=== PATIENT | female | born 1940 | race Caucasian/White ===

== ENCOUNTER 2018-12-08 13:55 | Emergency (ER) | payer MEDICARE, OTHER ==
[~2018-12-08] VITALS: Ht 165.1 cm; Wt 90.7 kg
[2018-12-08 16:00] VITALS: BP 176/80
== END 2018-12-08 16:35 | disposition home or self-care (01) ==
LOC: ER 13:55
DX: H20.9 Unspecified iridocyclitis (principal)
CPT/HCPCS: 76536

== ENCOUNTER → 2020-04-06 | Outpatient (CLI) | payer MEDICARE, OTHER ==
[2020-04-06 08:53] LABS: Basophils # (auto) 0 10 ^3/uL (0-0.2); Basophils % (auto) 0.3 % (0.0-2.0); Eosinophils # (auto) 0 10 ^3/uL (0-0.8); Eosinophils % (auto) 0.4 % (0.0-7.0); Hematocrit 45.1 % (36.0-46.0); Hemoglobin 15.2 g/dL (12.2-16.2); Lymphocytes # (auto) 2.1 10 ^3/uL (0.4-5.4); Lymphocytes % (auto) 28.8 % (10.0-50.0); Mean Corpuscular Hemoglobin 30.4 pg (28.0-32.0); Mean Corpuscular Hgb Conc. 33.8 g/dL (32.0-36.0); Mean Corpuscular Volume 90.2 fL (80.0-100.0); Monocytes # (auto) 0.7 10 ^3/uL (0-1.3); Monocytes % (auto) 10.4 % (0.0-12.0); Neutrophils # (auto) 4.3 10 ^3/uL (1.6-8.6); Neutrophils % (auto) 60.1 % (37.0-80.0); Nucleated Red Blood Cells % 0.2 %; Platelet Count (auto) 195 10^3/uL (140-450); Red Cell Distribution Width 13.4 % (11.8-14.3); White Blood Cell 7.1 10^3/uL (4.4-10.8)
[2020-04-06 09:11] LABS: Urine Bacteria NONE SEEN /hpf (None Seen); Urine Blood Negative /uL (Negative); Urine Hyaline Cast FEW /lpf (0 - 2); Urine Mucus FEW (None Seen); Urine Specific Gravity 1.013 (1.001-1.035); Urine WBC 1 /hpf (0 - 5)
[2020-04-06 09:16] LABS: Albumin 3.8 g/dL (3.4-5.0); Potassium 3.6 mmol/L (3.5-5.1)
[2020-04-06 09:27] LABS: BUN/Creatinine Ratio 16.2; Bilirubin, Total 0.6 mg/dL (0.2-1.0); CRP High Sensitivity 1.91 mg/dL (< 0.3); Calcium 9.4 mg/dL (8.5-10.1); Total Protein 8.1 g/dL (6.4-8.2)
== END | disposition home or self-care (01) ==
LOC: LAB 08:38
PROVIDERS: ATTEND Obstetrics & Gynecology
DX: I10 Essential (primary) hypertension (principal); R53.83 Other fatigue; E11.9 Type 2 diabetes mellitus without complications; R79.9 Abnormal finding of blood chemistry, unspecified
CPT/HCPCS: 36415; 80053; 80061; 81001; 83036; 84443; 85025; 86141; 87086

== ENCOUNTER 2021-02-13 11:33 | Emergency (ER) | payer OTHER ==
[~2021-02-13] VITALS: Ht 165.1 cm; Wt 93.6 kg
[2021-02-13] MEDS ORDERED: SODIUM CHLORIDE 0.9% 1,000 ML IV ONE (11:45)
[2021-02-13] MEDS ORDERED: methylPREDNISolone SOD SUCC 125 MG/2 ML VL IV ONE (11:45)
[2021-02-13 12:14] LABS: Basophils # (auto) 0 10 ^3/uL (0-0.2); Basophils % (auto) 0.4 % (0.0-2.0); Eosinophils # (auto) 0.1 10 ^3/uL (0-0.8); Eosinophils % (auto) 0.9 % (0.0-7.0); Hematocrit 43.8 % (36.0-46.0); Hemoglobin 14.7 g/dL (12.2-16.2); Lymphocytes # (auto) 1.7 10 ^3/uL (0.4-5.4); Lymphocytes % (auto) 19.2 % (10.0-50.0); Mean Corpuscular Hemoglobin 29.7 pg (28.0-32.0); Mean Corpuscular Hgb Conc. 33.4 g/dL (32.0-36.0); Mean Corpuscular Volume 88.9 fL (80.0-100.0); Monocytes # (auto) 0.6 10 ^3/uL (0-1.3); Monocytes % (auto) 6.7 % (0.0-12.0); Neutrophils # (auto) 6.4 10 ^3/uL (1.6-8.6); Neutrophils % (auto) 72.8 % (37.0-80.0); Red Blood Cells 4.93 10^6/uL (4.0-5.20); White Blood Cell 8.7 10^3/uL (4.4-10.8)
[2021-02-13 12:30] LABS: INR 1.03 (0.9-1.15); Partial Thromboplastin Time 25.3 sec (23.6-33.0)
[2021-02-13 12:32] LABS: Albumin 3.7 g/dL (3.4-5.0); Calcium 9.1 mg/dL (8.5-10.1); Potassium 4.1 mmol/L (3.5-5.1)
[2021-02-13 12:35] LABS: BUN/Creatinine Ratio 18.1; Bilirubin, Total 0.7 mg/dL (0.2-1.0); Total Protein 7.4 g/dL (6.4-8.2)
[2021-02-13] MEDS ORDERED: IOHEXOL 350 MG/ML 100ML IJ ONE (12:58)
[2021-02-13] MEDS ORDERED: FUROSEMIDE 20 MG/2 ML VIAL IV ONE (14:30)
[2021-02-13 14:43] VITALS: BP 158/66
== END 2021-02-13 15:06 | disposition home or self-care (01) ==
LOC: ER 11:33
DX: J40 Bronchitis, not specified as acute or chronic (principal); R60.0 Localized edema; Z20.822 Contact with and (suspected) exposure to COVID-19
CPT/HCPCS: 36415; 71275; 80053; 84484; 85025; 85610; 85730; 87426; 93005; 96374; 96375; 99285; J1940; J2930; Q9967

== ENCOUNTER → 2021-06-01 | Outpatient (CLI) | payer OTHER ==
[~2021-06-01] VITALS: Ht 165.1 cm; Wt 90.7 kg
[~2021-06-01] MED LIST: ADENOSINE 76 MG in GIVE UN-DILUTED 0 ML IV STA
== END | disposition home or self-care (01) ==
LOC: XY 07:50
PROVIDERS: ATTEND Internal Medicine
DX: I11.0 Hypertensive heart disease with heart failure (principal); I50.22 Chronic systolic (congestive) heart failure; I42.8 Other cardiomyopathies; R63.8 Other symptoms and signs concerning food and fluid intake; Z68.32 Body mass index [BMI] 32.0-32.9, adult; R94.31 Abnormal electrocardiogram [ECG] [EKG]; Z87.891 Personal history of nicotine dependence
CPT/HCPCS: 78452; 93017; A9500; J0153

== ENCOUNTER → 2021-12-07 | Outpatient (CLI) | payer OTHER | END | disposition home or self-care (01) | LOC: XYW 13:29 | PROVIDERS: ATTEND Internal Medicine | DX: R00.2 Palpitations (principal) | CPT/HCPCS: 93306 ==

== ENCOUNTER 2022-02-21 07:18 | Inpatient (IN) | payer OTHER ==
[2022-02-19 12:48] LABS: Basophils # (auto) 0 10 ^3/uL (0-0.2); Basophils % (auto) 0.4 % (0.0-2.0); Eosinophils # (auto) 0.1 10 ^3/uL (0-0.8); Eosinophils % (auto) 1.1 % (0.0-7.0); Hematocrit 45.2 % (36.0-46.0); Hemoglobin 15.3 g/dL (12.2-16.2); Lymphocytes # (auto) 2.5 10 ^3/uL (0.4-5.4); Lymphocytes % (auto) 33.7 % (10.0-50.0); Mean Corpuscular Hemoglobin 31.2 pg (28.0-32.0); Mean Corpuscular Hgb Conc. 33.8 g/dL (32.0-36.0); Mean Corpuscular Volume 92.1 fL (80.0-100.0); Monocytes # (auto) 0.6 10 ^3/uL (0-1.3); Neutrophils # (auto) 4.3 10 ^3/uL (1.6-8.6); Neutrophils % (auto) 56.8 % (37.0-80.0); Nucleated Red Blood Cells % 0.1 %; Red Blood Cells 4.91 10^6/uL (4.0-5.20); Red Cell Distribution Width 13.2 % (11.8-14.3); White Blood Cell 7.5 10^3/uL (4.4-10.8)
[2022-02-19 13:09] LABS: Partial Thromboplastin Time 25.3 sec (24.6-33.4)
[2022-02-19 14:00] LABS: Albumin 3.8 g/dL (3.4-5.0); BUN/Creatinine Ratio 13.3; Calcium 9.7 mg/dL (8.5-10.1); Potassium 4.5 mmol/L (3.5-5.1); Total Protein 7.7 g/dL (6.4-8.2)
[~2022-02-21] VITALS: Ht 170.2 cm; Wt 97.7 kg
[2022-02-21] VITALS (10 sets, daily range): BP systolic 93–145; BP diastolic 47–77
[~2022-02-21 07:18] MED LIST changes: -ADENOSINE 76 MG in GIVE UN-DILUTED 0 ML IV STA; +ASPI81CH49 PO; +ATO40T PO; +CARV6.2551 PO; +DAPA1TAB4 PO; +EZET10TA22 PO; +LISI-716 PO; +SPIR25TA8 PO
[2022-02-21] MEDS ORDERED: LIDOCAINE 2%HCL (LOCAL ANESTH.) INJ 20ML MDV ONE (11:50)
[2022-02-21] MEDS ORDERED: IODIXANOL 320MG/ML 100ML BTL IV ONE ×2 (11:50→12:38)
[2022-02-21] MEDS ORDERED: HEPARIN SODIUM (PORCINE) 5000 UNITS/ML 1ML VIAL ONE (11:59)
[2022-02-21] MEDS ORDERED: ANGIOMAX 250 MG VIAL IV ONE (11:59)
[2022-02-21] MEDS ORDERED: VERAPAMIL 2.5MG/ML INJ 2ML VIAL IV ONE (11:59)
[2022-02-21] MEDS ORDERED: fentaNYL CITRATE 100 MCG/2 ML VL ONE (12:00)
[2022-02-21] MEDS ORDERED: SODIUM CHL 0.9% 50 ML ONE (12:00)
[2022-02-21] MEDS ORDERED: MIDAZOLAM HCL 2MG/2ML 2ml VIAL (1mg/ml) ONE (12:00)
[2022-02-21] MEDS ORDERED: CLOPIDOGREL 300 MG TAB ONE (13:06)
[2022-02-21] MEDS ORDERED: NITROGLYCERIN 0.4 MG SL TAB SL PRN (13:30)
[2022-02-21] MEDS ORDERED: MORPHINE SULFATE INJ 2 MG/ml SYRG IV PRN (13:30)
[2022-02-21] MEDS ORDERED: ACETAMINOPHEN 500 MG TAB PO PRN (15:00)
[2022-02-21] MEDS ORDERED: ONDANSETRON HCL 4 MG/2 ML VIAL IV PRN (15:00)
[2022-02-21] MEDS ORDERED: traMADol HCL 50 MG TAB PO PRN (15:00)
[2022-02-21] MEDS: SODIUM CHLOR 0.9% PF (SALINE LOCK) 10ML VIAL/SYR IV SCH (22:00)
[2022-02-21] MEDS ORDERED: ATORVASTATIN 20 MG TAB PO SCH (22:00)
[2022-02-21] MEDS: CARVEDILOL 3.125 MG TAB PO SCH (22:29)
[2022-02-22 05:00] VITALS: BP 126/57
[2022-02-22] MEDS: SODIUM CHLOR 0.9% PF (SALINE LOCK) 10ML VIAL/SYR IV SCH ×2 (06:05→12:45)
[2022-02-22 06:43] LABS: Basophils # (auto) 0 10 ^3/uL (0-0.2); Basophils % (auto) 0.4 % (0.0-2.0); Eosinophils # (auto) 0.1 10 ^3/uL (0-0.8); Eosinophils % (auto) 1.4 % (0.0-7.0); Hematocrit 40.9 % (36.0-46.0); Lymphocytes # (auto) 2.8 10 ^3/uL (0.4-5.4); Lymphocytes % (auto) 32.7 % (10.0-50.0); Mean Corpuscular Hemoglobin 31.6 pg (28.0-32.0); Mean Corpuscular Hgb Conc. 34.2 g/dL (32.0-36.0); Mean Corpuscular Volume 92.4 fL (80.0-100.0); Monocytes # (auto) 0.7 10 ^3/uL (0-1.3); Monocytes % (auto) 8.5 % (0.0-12.0); Neutrophils # (auto) 4.8 10 ^3/uL (1.6-8.6); Red Blood Cells 4.43 10^6/uL (4.0-5.20); Red Cell Distribution Width 13.4 % (11.8-14.3); White Blood Cell 8.5 10^3/uL (4.4-10.8)
[2022-02-22 07:07] LABS: BUN/Creatinine Ratio 22.7; Calcium 8.7 mg/dL (8.5-10.1); Potassium 4.3 mmol/L (3.5-5.1)
[2022-02-22 08:30] VITALS: BP 119/66
[2022-02-22] MEDS ORDERED: ASPirin 81 mg TAB PO SCH (10:00)
[2022-02-22] MEDS ORDERED: LISINOPRIL 10 MG TAB PO SCH (10:00)
[2022-02-22] MEDS ORDERED: CLOPIDOGREL BISULFATE 75 MG TAB PO SCH (10:00)
[2022-02-22] MEDS: CARVEDILOL 3.125 MG TAB PO SCH (10:17)
[2022-02-22] MEDS ORDERED: APIXABAN 2.5 MG TAB PO ONE (11:22)
[2022-02-22] MEDS ORDERED: ASPI-325 PO (11:27)
[2022-02-22] MEDS ORDERED: APIX5TAB PO (11:27)
[2022-02-22] MEDS ORDERED: CLOP75TA70 PO (11:27)
[2022-02-22 12:30] VITALS: BP 145/77
[2022-02-22 13:16] VITALS: BP 124/55
[2022-02-22] MEDS ORDERED: APIXABAN 5 MG TAB PO SCH (22:00)
[2022-02-23] MEDS ORDERED: EMPAGLIFLOZIN 10 MG TAB PO SCH (10:00)
== END 2022-02-22 14:42 | disposition home or self-care (01) | DRG 247 ==
LOC: CATH 07:18 → TELE 13:29 → TELE-WESTW 16:16
PROVIDERS: ADMIT Internal Medicine; ATTEND Internal Medicine
PROC: 027135Z Dilation of Coronary Artery, Two Arteries with Two Drug-eluting Intraluminal Devices, Percutaneous Approach (ICD-10-PCS; principal; 2022-02-21)
PROC: 4A023N7 Measurement of Cardiac Sampling and Pressure, Left Heart, Percutaneous Approach (ICD-10-PCS; 2022-02-21)
PROC: B211YZZ Fluoroscopy of Multiple Coronary Arteries using Other Contrast (ICD-10-PCS; 2022-02-21)
PROC: B215YZZ Fluoroscopy of Left Heart using Other Contrast (ICD-10-PCS; 2022-02-21)
DX: I25.10 Atherosclerotic heart disease of native coronary artery without angina pectoris (principal); I50.22 Chronic systolic (congestive) heart failure; I51.3 Intracardiac thrombosis, not elsewhere classified; E66.9 Obesity, unspecified; Z60.2 Problems related to living alone; Z20.822 Contact with and (suspected) exposure to COVID-19; E78.5 Hyperlipidemia, unspecified; I11.0 Hypertensive heart disease with heart failure; Z79.02 Long term (current) use of antithrombotics/antiplatelets; Z79.82 Long term (current) use of aspirin; Z95.5 Presence of coronary angioplasty implant and graft; Z68.33 Body mass index [BMI] 33.0-33.9, adult
CPT/HCPCS: 36415; 80048; 80053; 83036; 84443; 85025; 85610; 85730; 92928; 92929; 93458; 99152; 99153; C1874; G0378; J2250; Q9967

== ENCOUNTER → 2022-07-23 | Outpatient (CLI) | payer OTHER ==
[~2022-07-23] MED LIST changes: +APIX5TAB PO; +ASPI-325 PO; +CLOP75TA70 PO
== END | disposition home or self-care (01) ==
LOC: XYW 10:22
PROVIDERS: ATTEND Internal Medicine
DX: I07.1 Rheumatic tricuspid insufficiency (principal); I50.22 Chronic systolic (congestive) heart failure
CPT/HCPCS: 93306

== ENCOUNTER → 2022-10-26 | Outpatient (CLI) | payer OTHER ==
[~2022-10-26] MED LIST changes: -LISI-716 PO; +LISI10TA34 PO
== END | disposition home or self-care (01) ==
LOC: XYW 07:20
PROVIDERS: ATTEND Internal Medicine
DX: I49.9 Cardiac arrhythmia, unspecified (principal)
CPT/HCPCS: 78472; A9560

== ENCOUNTER → 2022-11-16 | Outpatient (CLI) | payer OTHER ==
[2022-11-16 08:40] LABS: Basophils # (auto) 0.1 10 ^3/uL (0-0.2); Basophils % (auto) 0.7 % (0.0-2.0); Eosinophils # (auto) 0.1 10 ^3/uL (0-0.8); Eosinophils % (auto) 1.8 % (0.0-7.0); Hematocrit 41.2 % (36.0-46.0); Hemoglobin 13.8 g/dL (12.2-16.2); Lymphocytes # (auto) 2.3 10 ^3/uL (0.4-5.4); Lymphocytes % (auto) 28.8 % (10.0-50.0); Mean Corpuscular Hemoglobin 31.4 pg (28.0-32.0); Mean Corpuscular Hgb Conc. 33.4 g/dL (32.0-36.0); Monocytes # (auto) 0.7 10 ^3/uL (0-1.3); Neutrophils # (auto) 4.9 10 ^3/uL (1.6-8.6); Neutrophils % (auto) 59.7 % (37.0-80.0); Red Blood Cells 4.39 10^6/uL (4.0-5.20); Red Cell Distribution Width 13.8 % (11.8-14.3); White Blood Cell 8.1 10^3/uL (4.4-10.8)
[2022-11-16 08:57] LABS: Albumin 3.7 g/dL (3.4-5.0); Calcium 8.6 mg/dL (8.5-10.1); Potassium 4.3 mmol/L (3.5-5.1)
[2022-11-16 09:02] LABS: BUN/Creatinine Ratio 26.1 (10.0-20.0); Bilirubin, Total 0.5 mg/dL (0.2-1.0)
[2022-11-16 09:08] LABS: Free T3 3.35 pg/mL (2.3-4.2); Free T4 (Free Thyroxine) 1.07 ng/dL (0.89-1.76)
== END | disposition home or self-care (01) ==
LOC: LAB 07:56
PROVIDERS: ATTEND Internal Medicine
DX: I11.0 Hypertensive heart disease with heart failure (principal); I50.22 Chronic systolic (congestive) heart failure; I25.10 Atherosclerotic heart disease of native coronary artery without angina pectoris; I48.91 Unspecified atrial fibrillation
CPT/HCPCS: 36415; 80053; 80061; 84439; 84443; 84481; 85025

== ENCOUNTER 2022-12-19 06:43 | Inpatient (IN) | payer OTHER ==
[2022-12-18 14:42] LABS: Basophils # (auto) 0.1 10 ^3/uL (0-0.2); Eosinophils # (auto) 0.1 10 ^3/uL (0-0.8); Eosinophils % (auto) 1.4 % (0.0-7.0); Hemoglobin 14.4 g/dL (12.2-16.2); Lymphocytes # (auto) 2.6 10 ^3/uL (0.4-5.4); Lymphocytes % (auto) 28.7 % (10.0-50.0); Mean Corpuscular Hemoglobin 30.7 pg (28.0-32.0); Mean Corpuscular Hgb Conc. 32.8 g/dL (32.0-36.0); Mean Corpuscular Volume 93.7 fL (80.0-100.0); Monocytes # (auto) 0.7 10 ^3/uL (0-1.3); Monocytes % (auto) 7.4 % (0.0-12.0); Neutrophils # (auto) 5.5 10 ^3/uL (1.6-8.6); Neutrophils % (auto) 61.5 % (37.0-80.0); Nucleated Red Blood Cells % 0.1 %; Red Cell Distribution Width 13.6 % (11.8-14.3)
[2022-12-18 15:03] LABS: INR 1.04 (0.9-1.15); Partial Thromboplastin Time 24.9 SEC (24.5-34.5); Prothrombin Time 10.9 sec (9.3-11.8)
[2022-12-18 15:37] LABS: Alanine Aminotransferase 33 U/L (7-40); Albumin 4.8 g/dL (3.2-4.8); Alkaline Phosphatase 71 U/L (46-116); Anion Gap 5.5 (5-15); Aspartate Aminotransferase 18 U/L (13-40); BUN/Creatinine Ratio 16.5 (10.0-20.0); Bilirubin, Total 0.7 mg/dL (0.2-1.0); Blood Urea Nitrogen 14 mg/dL (9-23); Calcium 9.8 mg/dL (8.7-10.4); Carbon Dioxide 28.5 mmol/L (20-30); Chloride 104 mmol/L (98-107); Glucose 130 mg/dL (74-106); Potassium 4.3 mmol/L (3.5-5.1); Sodium 138 mmol/L (136-145); Total Protein 7.5 g/dL (5.7-8.2)
[~2022-12-19] VITALS: Ht 165.1 cm; Wt 95.3 kg
[2022-12-19] VITALS (16 sets, daily range): BP systolic 119–147; BP diastolic 52–78; PULSE 58–82; RESP 15–20; TEMP 97.6–98.7; O2SAT 93–99
[~2022-12-19 06:43] MED LIST changes: -ASPI-325 PO; -ASPI81CH49 PO; -DAPA1TAB4 PO
[2022-12-19] MEDS ORDERED: LIDOCAINE 2%HCL (LOCAL ANESTH.) INJ 20ML MDV ONE ×2 (08:13→08:52)
[2022-12-19] MEDS ORDERED: IODIXANOL 320MG/ML 100ML BTL IV ONE (08:13)
[2022-12-19] MEDS ORDERED: HEPARIN SODIUM (PORCINE) 5000 UNITS/ML 1ML VIAL ONE (08:51)
[2022-12-19] MEDS ORDERED: ANGIOMAX 250 MG VIAL IV ONE (08:51)
[2022-12-19] MEDS ORDERED: fentaNYL CITRATE 100 MCG/2 ML VL ONE (08:51)
[2022-12-19] MEDS ORDERED: MIDAZOLAM HCL 2MG/2ML 2ml VIAL (1mg/ml) ONE (08:51)
[2022-12-19] MEDS ORDERED: VERAPAMIL 2.5MG/ML INJ 2ML VIAL IV ONE (08:51)
[2022-12-19] MEDS ORDERED: IOHEXOL 350 MG/ML 100ML IJ ONE (08:52)
[2022-12-19] MEDS ORDERED: SODIUM CHL 0.9% 50 ML ONE (08:52)
[2022-12-19] MEDS ORDERED: CLOPIDOGREL BISULFATE 75 MG TAB ONE (10:45)
[2022-12-19] MEDS ORDERED: MORPHINE SULFATE INJ 2 MG/ml SYRG IV PRN (12:00)
[2022-12-19] MEDS ORDERED: NITROGLYCERIN 0.4 MG SL TAB SL PRN (12:00)
[2022-12-19] MEDS ORDERED: APIX5TAB PO (12:00)
[2022-12-19] MEDS ORDERED: PNEUMOCOCCAL VACC POLYS 25 MCG/0.5 ML VIAL IM ONE (18:30)
[2022-12-20 05:00] VITALS: BP 102/56; PULSE 64; RESP 17; TEMP 98.3; O2SAT 95
[2022-12-20 08:00] VITALS: BP 109/47; PULSE 66; PULSE 72; RESP 20; TEMP 98.8; O2SAT 98
[2022-12-20] MEDS ORDERED: PNEUMOCOCCAL VACC POLYS 25 MCG/0.5 ML VIAL IM ONE (09:00)
[2022-12-20] MEDS ORDERED: INFLUENZA QUAD 2022-2023 0.5 ML SYRG IM ONE (09:00)
[2022-12-20 12:00] VITALS: BP 116/54; PULSE 67; TEMP 97.7; O2SAT 20
[2022-12-20 14:08] VITALS: BP 116/54; PULSE 67; RESP 20; TEMP 97.7; O2SAT 96
== END 2022-12-20 15:18 | disposition home or self-care (01) | DRG 249 ==
LOC: CATH 06:43 → TELE 11:56 → TELE-WESTW 15:26
PROVIDERS: ADMIT Internal Medicine; ATTEND Internal Medicine
PROC: 4A023N7 Measurement of Cardiac Sampling and Pressure, Left Heart, Percutaneous Approach (ICD-10-PCS; principal; 2022-12-19)
PROC: 02703EZ Dilation of Coronary Artery, One Artery with Two Intraluminal Devices, Percutaneous Approach (ICD-10-PCS; 2022-12-19)
PROC: B2111ZZ Fluoroscopy of Multiple Coronary Arteries using Low Osmolar Contrast (ICD-10-PCS; 2022-12-19)
PROC: B2151ZZ Fluoroscopy of Left Heart using Low Osmolar Contrast (ICD-10-PCS; 2022-12-19)
DX: I25.10 Atherosclerotic heart disease of native coronary artery without angina pectoris (principal); I50.22 Chronic systolic (congestive) heart failure; E78.5 Hyperlipidemia, unspecified; I11.0 Hypertensive heart disease with heart failure; E66.9 Obesity, unspecified; Z68.35 Body mass index [BMI] 35.0-35.9, adult; I25.82 Chronic total occlusion of coronary artery
CPT/HCPCS: 36415; 80053; 85025; 85610; 85730; 90686; 92928; 93458; 99152; 99153; C1769; C1874; G0378; J2250; Q9967

== ENCOUNTER → 2023-08-16 | Outpatient (CLI) | payer OTHER ==
[~2023-08-16] MED LIST changes: -ATO40T PO; +ATOR-507 PO; -CLOP75TA70 PO
[2023-08-16 08:12] LABS: Basophils # (auto) 0.1 10 ^3/uL (0-0.2); Basophils % (auto) 0.7 % (0.0-2.0); Eosinophils # (auto) 0.1 10 ^3/uL (0-0.8); Eosinophils % (auto) 1.1 % (0.0-7.0); Hematocrit 41.7 % (36.0-46.0); Hemoglobin 13.5 g/dL (12.2-16.2); Lymphocytes # (auto) 2.8 10 ^3/uL (0.4-5.4); Lymphocytes % (auto) 34.5 % (10.0-50.0); Mean Corpuscular Hgb Conc. 32.3 g/dL (32.0-36.0); Mean Corpuscular Volume 92.8 fL (80.0-100.0); Monocytes # (auto) 0.8 10 ^3/uL (0-1.3); Monocytes % (auto) 9.4 % (0.0-12.0); Neutrophils # (auto) 4.4 10 ^3/uL (1.6-8.6); Neutrophils % (auto) 54.3 % (37.0-80.0); Nucleated Red Blood Cells % 0.1 %; Red Blood Cells 4.49 10^6/uL (4.0-5.20); Red Cell Distribution Width 13.8 % (11.8-14.3); White Blood Cell 8.1 10^3/uL (4.4-10.8)
[2023-08-16 08:41] LABS: Alanine Aminotransferase 14 U/L (7-40); Albumin 4.5 g/dL (3.2-4.8); Alkaline Phosphatase 76 U/L (46-116); Anion Gap 6 (5-15); Aspartate Aminotransferase 18 U/L (13-40); BUN/Creatinine Ratio 14.1 (10.0-20.0); Blood Urea Nitrogen 13 mg/dL (9-23); Carbon Dioxide 29 mmol/L (20-30); Chloride 105 mmol/L (98-107); Cholesterol 124 mg/dL (< 200); Glucose 132 mg/dL (74-106); HDL Cholesterol 55 mg/dL (40-59); LDL Cholesterol 44 mg/dL (< 100); Potassium 4.3 mmol/L (3.5-5.1); Sodium 140 mmol/L (136-145); Triglycerides 90 mg/dL (< 150)
[2023-08-16 08:42] LABS: Bilirubin, Total 0.7 mg/dL (0.2-1.0)
[2023-08-16 08:58] LABS: Free T3 3.98 pg/mL (2.3-4.2); Free T4 (Free Thyroxine) 1.12 ng/dL (0.89-1.76)
== END | disposition home or self-care (01) ==
LOC: LAB 07:32
PROVIDERS: ATTEND Internal Medicine
DX: I25.10 Atherosclerotic heart disease of native coronary artery without angina pectoris (principal); I10 Essential (primary) hypertension; I42.0 Dilated cardiomyopathy
CPT/HCPCS: 36415; 80053; 80061; 84439; 84443; 84481; 85025

== ENCOUNTER → 2023-08-21 | Outpatient (CLI) | payer OTHER ==
[~2023-08-21] VITALS: Ht 165.1 cm; Wt 94.8 kg
[2023-08-21] MEDS: ADENOSINE 80 MG in GIVE UN-DILUTED 0 ML IV ONE (09:56)
== END | disposition home or self-care (01) ==
LOC: XYW 08-20 11:08
PROVIDERS: ATTEND Internal Medicine
DX: I13.0 Hypertensive heart and chronic kidney disease with heart failure and stage 1 through stage 4 chronic kidney disease, or unspecified chronic kidney disease (principal); I50.22 Chronic systolic (congestive) heart failure; N18.2 Chronic kidney disease, stage 2 (mild); R06.02 Shortness of breath; I25.118 Atherosclerotic heart disease of native coronary artery with other forms of angina pectoris; I42.0 Dilated cardiomyopathy; R07.9 Chest pain, unspecified; I70.0 Atherosclerosis of aorta; I77.810 Thoracic aortic ectasia; I48.91 Unspecified atrial fibrillation; I47.10 Supraventricular tachycardia, unspecified; D68.69 Other thrombophilia
CPT/HCPCS: 78452; 93017; A9500; J0153

== ENCOUNTER → 2023-08-27 | Outpatient (CLI) | payer OTHER | END | disposition home or self-care (01) | LOC: XYW 08:32 | PROVIDERS: ATTEND Student in an Organized Health Care Education/Training Program | DX: I25.3 Aneurysm of heart (principal); I51.89 Other ill-defined heart diseases; R07.9 Chest pain, unspecified | CPT/HCPCS: 93306 ==

== ENCOUNTER 2023-09-11 09:45 | Inpatient (IN) | payer OTHER ==
[~2023-09-11] VITALS: Ht 165.1 cm; Wt 101.5 kg
[2023-09-11] MEDS: HYDROcodone-ACET 10/325MG TAB PO ONE (10:19)
[2023-09-11 10:47] LABS: Basophils # (auto) 0.1 10 ^3/uL (0-0.2); Basophils % (auto) 0.6 % (0.0-2.0); Eosinophils # (auto) 0.1 10 ^3/uL (0-0.8); Eosinophils % (auto) 1.4 % (0.0-7.0); Hematocrit 41.2 % (36.0-46.0); Hemoglobin 13.6 g/dL (12.2-16.2); Lymphocytes # (auto) 1.8 10 ^3/uL (0.4-5.4); Lymphocytes % (auto) 22.9 % (10.0-50.0); Mean Corpuscular Hemoglobin 30.9 pg (28.0-32.0); Mean Corpuscular Hgb Conc. 32.9 g/dL (32.0-36.0); Mean Corpuscular Volume 93.7 fL (80.0-100.0); Monocytes # (auto) 0.6 10 ^3/uL (0-1.3); Neutrophils # (auto) 5.4 10 ^3/uL (1.6-8.6); Neutrophils % (auto) 67.1 % (37.0-80.0); Red Blood Cells 4.39 10^6/uL (4.0-5.20); Red Cell Distribution Width 13.6 % (11.8-14.3); White Blood Cell 8.1 10^3/uL (4.4-10.8)
[2023-09-11 11:02] LABS: Alanine Aminotransferase 18 U/L (7-40); Albumin 3.8 g/dL (3.2-4.8); Alkaline Phosphatase 77 U/L (46-116); Anion Gap 5 (5-15); Aspartate Aminotransferase 16 U/L (13-40); BUN/Creatinine Ratio 9.8 (10.0-20.0); Bilirubin, Total 0.6 mg/dL (0.2-1.0); Blood Urea Nitrogen 9 mg/dL (9-23); Calcium 9.6 mg/dL (8.5-10.1); Carbon Dioxide 26 mmol/L (20-30); Chloride 109 mmol/L (98-107); Glucose 120 mg/dL (74-106); Potassium 4.4 mmol/L (3.5-5.1); Sodium 140 mmol/L (136-145); Total Protein 6.8 g/dL (5.7-8.2)
[2023-09-11] MEDS ORDERED: DOCUSATE SOD 100 MG CAP PO PRN (14:15)
[2023-09-11] MEDS ORDERED: ONDANSETRON HCL 4 MG/2 ML VIAL IV PRN (14:15)
[2023-09-11] MEDS ORDERED: NITROGLYCERIN 0.4 MG SL TAB SL PRN (14:15)
[2023-09-11] MEDS ORDERED: ACETAMINOPHEN 325 MG TAB PO PRN (14:15)
[2023-09-11] MEDS ORDERED: ASPI-325 PO (14:45)
[2023-09-11] MEDS ORDERED: CLOP75TA70 PO (14:45)
[2023-09-11] MEDS: MORPHINE SULFATE INJ 2 MG/ml SYRG IV PRN (15:51)
[2023-09-11] MEDS: CARVEDILOL 3.125 MG TAB PO SCH (18:00)
[2023-09-11] MEDS ORDERED: PATIENTS OWN MEDICATION (Atorvastatin Calcium (Lipitor) 1 TAB) PO SCH (18:00)
[2023-09-11] MEDS ORDERED: PATIENTS OWN MEDICATION (Carvedilol 1 TAB) PO SCH (18:00)
[2023-09-11 19:30] VITALS: PULSE 68; RESP 14; O2SAT 96
[2023-09-11 21:30] VITALS: BP 157/57; PULSE 66; RESP 16; TEMP 97.7; O2SAT 94
[2023-09-11] MEDS: ATORVASTATIN 20 MG TAB PO SCH (22:15)
[2023-09-11] MEDS: APIXABAN 5 MG TAB PO SCH (22:16)
[2023-09-11] MEDS: SODIUM CHLOR 0.9% PF (SALINE LOCK) 10ML VIAL/SYR IV SCH (22:17)
[2023-09-11 23:47] VITALS: BP 157/57; PULSE 66; RESP 16; TEMP 97.7; O2SAT 94
[2023-09-11] MEDS: HYDROcodone-ACET 5/325MG TAB PO PRN (23:58)
[2023-09-12 00:46] VITALS: BP 157/83; PULSE 73; RESP 19; TEMP 98.4; O2SAT 96
[2023-09-12] MEDS: MORPHINE SULFATE INJ 2 MG/ml SYRG IV PRN (01:18)
[2023-09-12 05:00] VITALS: BP 154/72; PULSE 74; RESP 19; TEMP 97.9; O2SAT 95
[2023-09-12 06:50] LABS: Basophils # (auto) 0.1 10 ^3/uL (0-0.2); Basophils % (auto) 0.7 % (0.0-2.0); Eosinophils # (auto) 0.1 10 ^3/uL (0-0.8); Eosinophils % (auto) 1.5 % (0.0-7.0); Hematocrit 41.7 % (36.0-46.0); Hemoglobin 13.8 g/dL (12.2-16.2); Lymphocytes # (auto) 2.8 10 ^3/uL (0.4-5.4); Mean Corpuscular Hemoglobin 30.8 pg (28.0-32.0); Mean Corpuscular Hgb Conc. 33.2 g/dL (32.0-36.0); Mean Corpuscular Volume 92.8 fL (80.0-100.0); Monocytes # (auto) 0.7 10 ^3/uL (0-1.3); Monocytes % (auto) 8.8 % (0.0-12.0); Neutrophils # (auto) 4.1 10 ^3/uL (1.6-8.6); Nucleated Red Blood Cells % 0.1 %; Red Blood Cells 4.49 10^6/uL (4.0-5.20); Red Cell Distribution Width 13.5 % (11.8-14.3); White Blood Cell 7.8 10^3/uL (4.4-10.8)
[2023-09-12 07:16] LABS: Alanine Aminotransferase 18 U/L (7-40); Albumin 4.5 g/dL (3.2-4.8); Alkaline Phosphatase 78 U/L (46-116); Anion Gap 5 (5-15); BUN/Creatinine Ratio 12.6 (10.0-20.0); Blood Urea Nitrogen 11 mg/dL (9-23); Calcium 9.9 mg/dL (8.5-10.1); Carbon Dioxide 27 mmol/L (20-30); Chloride 106 mmol/L (98-107); Glucose 107 mg/dL (74-106); Potassium 4.2 mmol/L (3.5-5.1); Sodium 138 mmol/L (136-145)
[2023-09-12 07:17] LABS: Aspartate Aminotransferase 20 U/L (13-40); Bilirubin, Total 0.8 mg/dL (0.2-1.0)
[2023-09-12 07:50] LABS: Magnesium 1.8 mg/dL (1.6-2.6)
[2023-09-12 07:51] LABS: CRP High Sensitivity 0.05 mg/dL (<1.0)
[2023-09-12 08:00] VITALS: PULSE 75; O2SAT 92
[2023-09-12 08:38] LABS: Erythrocyte Sedimentation Rate 8 mm/hr (0-20)
[2023-09-12] MEDS ORDERED: ACET-1882 PO (08:52)
[2023-09-12] MEDS ORDERED: LIDO5DIS21 TOP (08:52)
[2023-09-12] MEDS ORDERED: [UNRECOGNIZED DRUG - CODE] TD (08:52)
[2023-09-12 09:00] VITALS: BP 142/82; PULSE 63; RESP 18; TEMP 97.4; O2SAT 92
[2023-09-12 09:11] LABS: Hepatitis B Surface Antigen Negative (Negative)
[2023-09-12] MEDS: SPIRONOLACTONE 25 MG TAB PO SCH (09:26)
[2023-09-12] MEDS: LISINOPRIL 5 MG TAB PO SCH (09:27)
[2023-09-12] MEDS: CLOPIDOGREL BISULFATE 75 MG TAB PO SCH (09:27)
[2023-09-12] MEDS: ASPirin-EC 81 mg tab PO SCH (09:27)
[2023-09-12 09:33] LABS: Hepatitis C Antibody Negative (Negative)
[2023-09-12] MEDS ORDERED: PATIENTS OWN MEDICATION (Lisinopril 1 TAB) PO SCH (10:00)
[2023-09-12] MEDS ORDERED: LORazepam 2MG/ML-1ML VIAL IV ONE (10:15)
[2023-09-12 13:00] VITALS: BP 120/46; PULSE 77; RESP 18; TEMP 97.6; O2SAT 94
[2023-09-12 14:01] VITALS: BP 120/46; PULSE 77; RESP 18; TEMP 97.6; O2SAT 94
== END 2023-09-12 14:30 | disposition home or self-care (01) | DRG 552 ==
LOC: ER 09:45 → TELE 14:08 → TELE-EAST 21:25
PROVIDERS: ADMIT Internal Medicine; ATTEND Internal Medicine
DX: M47.22 Other spondylosis with radiculopathy, cervical region (principal); I11.0 Hypertensive heart disease with heart failure; E78.5 Hyperlipidemia, unspecified; I50.9 Heart failure, unspecified; I25.10 Atherosclerotic heart disease of native coronary artery without angina pectoris; F17.200 Nicotine dependence, unspecified, uncomplicated; Z95.5 Presence of coronary angioplasty implant and graft; Z96.652 Presence of left artificial knee joint; Z80.3 Family history of malignant neoplasm of breast; Z83.3 Family history of diabetes mellitus
CPT/HCPCS: 36415; 70450; 71045; 72141; 73030; 73060; 80053; 80061; 83605; 83735; 83880; 84443; 84484; 85025; 85379; 85652; 86141; 86803; 87040; 87340; 93971; 96374; 97163; G0378

== ENCOUNTER → 2025-01-20 | Outpatient (CLI) | payer OTHER ==
[~2025-01-20] MED LIST changes: +ACET-1882 PO; +ASPI-325 PO; +CLOP75TA70 PO; +LIDO5DIS21 TOP; +[UNRECOGNIZED DRUG - CODE] TD
[2025-01-20 12:23] LABS: Hematocrit 44.8 % (36.0-46.0); Hemoglobin 14.9 g/dL (12.2-16.2); Mean Corpuscular Hemoglobin 31.0 pg (28.0-32.0); Mean Corpuscular Volume 93.3 fL (80.0-100.0); Nucleated Red Blood Cells % 0.0 %
[2025-01-20 12:47] LABS: Urine Protein, UAD Negative (Negative); Urine WBC Clumps PRESENT /hpf (None Seen)
[2025-01-20 13:26] LABS: Alanine Aminotransferase 30 U/L (7-40); Albumin 4.8 g/dL (3.2-4.8); Alkaline Phosphatase 92 U/L (46-116); Anion Gap 10 (5-15); BUN/Creatinine Ratio 11.7 (10.0-20.0); Blood Urea Nitrogen 11 mg/dL (9-23); Calcium 9.3 mg/dL (8.7-10.4); Carbon Dioxide 27 mmol/L (20-31); Chloride 105 mmol/L (98-107); Potassium 4.0 mmol/L (3.5-5.1); Sodium 142 mmol/L (136-145); Total Protein 7.6 g/dL (5.7-8.2); Triglycerides 104 mg/dL (< 150)
[2025-01-20 13:27] LABS: Bilirubin, Total 0.7 mg/dL (0.2-1.0); Cholesterol 138 mg/dL (< 200); Glucose 136 mg/dL (74-106); HDL Cholesterol 65 mg/dL (40-59)
[2025-01-20 13:30] LABS: Free T4 (Free Thyroxine) 1.12 ng/dL (0.89-1.76)
== END | disposition home or self-care (01) ==
LOC: LAB 12:01
PROVIDERS: ATTEND Internal Medicine
DX: I11.0 Hypertensive heart disease with heart failure (principal); I50.42 Chronic combined systolic (congestive) and diastolic (congestive) heart failure; I48.0 Paroxysmal atrial fibrillation; Z79.899 Other long term (current) drug therapy
CPT/HCPCS: 36415; 80053; 80061; 81001; 82306; 82607; 83036; 84439; 84443; 85025

== ENCOUNTER 2025-03-03 12:01 | Inpatient (IN) | payer OTHER ==
[~2025-03-03] VITALS: Ht 175.3 cm; Wt 103.1 kg
--- NOTE | 2025-03-03 13:08 | ED.PDOC ---
HPI (NEURO) HPI Comments This is a 84 year old female presenting to the ED with chief complaint of facial droop. Patient reports that she has been experiencing left sided facial droop with associated nausea since this morning. Patient relays that her heart rate had also read to be between 30-40 yesterday. Patient states that she is currently on a few blood thinners. Patient denies any vomiting, headache, numbness, weakness, tingling, or chest pain. Chief Complaint: Face pain Time Seen by MD: 13:05 Primary Care Provider: KRISTIE Pollack Notes: Nurses Notes, Movement Assembler Notes, Medications, Allergies Information Source: Patient, Emergency Med Personnel Mode of Arrival: EMS Severity: Moderate Timing: Hours Duration: Since onset Prehospital treatment: None Weakness Location: Facial Onset: At rest Circumstances: Spontaneous Past Medical History PAST MEDICAL HISTORY: CHF, High Lipids, HTN Surgical History: Denies all surgeries ACCESS COORDINATOR History: Denies all ACCESS COORDINATOR Hx Family History Family History: Reviewed,noncontributory to illness, Unknown Social History Smoker: Non-Smoker Alcohol: Denies ETOH Use Drugs: Denies Drug Use Lives In: Home Constitutional: denies: chills, diaphoresis, fatigue, fever, malaise, sweats, weakness, others EENTM: denies: blurred vision, double vision, ear bleeding, ear discharge, ear drainage, ear pain, ear ringing, eye pain, eye redness, hearing loss, mouth pain, mouth swelling, nasal discharge, nose bleeding, nose congestion, nose pain, photophobia, tearing, throat pain, throat swelling, voice changes, others Respiratory: denies: cough, hemoptysis, orthopnea, SOB at rest, shortness of breath, SOB with excertion, stridor, wheezing, others Cardiovascular: denies: chest pain, dizzy spells, diaphoresis, Dyspnea on exertion, edema, irregular heart beat, left arm pain, lightheadedness, palpitations, PND, syncope, others Gastrointestinal: denies: abdomen distended, abdominal pain, blood streaked bowels, constipated, diarrhea, dysphagia, difficulty swallowing, hematemesis, melena, nausea, poor appetite, poor fluid intake, rectal bleeding, rectal pain, vomiting, others Genitourinary: denies: abnormal vagina bleeding, burning, dyspareunia, dysuria, flank pain, frequency, hematuria, incontinence, pain, , vagina discharge, urgency, others Neurological: reports: others (Facial droop); denies: dizziness, fainting, headache, left sided numbness, left sided weakness, numbness, paresthesia, pre- existing deficit, right sided numbness, right sided weakness, seizure, speech problems, tingling, tremors, weakness Musculoskeletal: denies: back pain, gout, joint pain, joint swelling, muscle pain, muscle stiffness, neck pain, others Integumetry: denies: bruises, change in color, change in hair/nails, dryness, laceration, lesions, lumps, rash, wounds, others Allergic/Immunocompromised: denies: Difficulty Healing, Frequent Infections, Hives, Itching, others Hematologic/Lymphatic: denies: anemia, blood clots, easy bleeding, easy bruising, swollen glands, others Endocrine: denies: excessive hunger, excessive sweating, excessive thirst, excessive urination, flushing, intolerance to cold, intolerance to heat, unexplained weight gain, unexplained weight loss, others Psychiatric: denies: anxiety, bipolar disorder, depression, hopeless, panic disorder, schizophrenia, sleepless, suicidal, others All Other Systems: Reviewed and Negative Physical Exam General Appearance: No Apparent Distress, Normal HEENT: Normal ENT Inspection, Pharynx Normal, TMs Normal Neck: Full Range of Motion, Non-Tender, Normal, Normal Inspection Respiratory: Chest Non-Tender, Lungs Clear, No Accessory Muscle Use, No Respiratory Distress, Normal Breath Sounds Cardiovascular: No Edema, No JVD, No Murmur, No Gallop, Normal Peripheral Pulses, Regular Rate/Rhythm Breast Exam: Deferred Gastrointestinal: No Organomegaly, Non Tender, No Pulsatile Mass, Normal Bowel Sounds, Soft Genitalia: Deferred Pelvic: Deferred Rectal: Deferred Extremities: No calf tenderness, Normal capillary refill, Normal inspection, Normal range of motion, Non-tender, No pedal edema Musculoskeletal : Apperance: Normal Neurologic: Alert, panel flow machine operator II-XII nml as Tested, No Motor Deficits, Normal Affect, Normal Mood, No Sensory Deficits Cerebellar Function: Normal Reflexes: Normal Skin: Dry, Normal Color, Warm Lymphatic: No Adenopathy Was a procedure done? Was a procedure done?: No X-Ray, Labs, Meds, VS Vital Signs Date Time Temp Pulse Resp B/P (MAP) Pulse Ox O2 Delivery O2 Flow Rate FiO2 03/03/25 17:02 64 03/03/25 16:00 98.0 68 19 163/65 (97) 93 98.0 03/03/25 16:00 67 03/03/25 14:20 68 12 157/71 (99) 96 03/03/25 14:10 68 12 96 Room Air* 0 21 03/03/25 12:11 98.9 78 15 178/90 100 98.9 Lab Test 03/03/25 16:44 03/03/25 14:43 03/03/25 13:45 Range/Units Troponin I High Sensitivity 23 22 22 </=34 ng/L White Blood Count 8.5 4.4-10.8 10^3/uL Red Blood Count 4.95 4.0-5.20 10^6/uL Hemoglobin 15.3 12.2-16.2 g/dL Hematocrit 45.6 36.0-46.0 % Mean Corpuscular Volume 92.2 80.0-100.0 fL Mean Corpuscular Hemoglobin 30.9 28.0-32.0 pg Mean Corpuscular Hemoglobin Concent 33.5 32.0-36.0 g/dL Red Cell Distribution Width 13.2 11.8-14.3 % Platelet Count 200 140-450 10^3/uL Mean Platelet Volume 8.1 6.9-10.8 fL Neutrophils (%) (Auto) 65.6 37.0-80.0 % Lymphocytes (%) (Auto) 25.2 10.0-50.0 % Monocytes (%) (Auto) 7.4 0.0-12.0 % Eosinophils (%) (Auto) 1.3 0.0-7.0 % Basophils (%) (Auto) 0.5 0.0-2.0 % Neutrophils # (Auto) 5.6 1.6-8.6 10 ^3/uL Lymphocytes # (Auto) 2.2 0.4-5.4 10 ^3/uL Monocytes # (Auto) 0.6 0-1.3 10 ^3/uL Eosinophils # (Auto) 0.1 0-0.8 10 ^3/uL Basophils # (Auto) 0 0-0.2 10 ^3/uL Nucleated Red Blood Cells 0.1 % Prothrombin Time 11.5 9.3-11.8 sec Prothrombin Time INR 1.09 0.9-1.15 Activated Partial Thromboplast Time 29.3 24.5-34.5 SEC Sodium Level 141 136-145 mmol/L Potassium Level 4.4 3.5-5.1 mmol/L Chloride Level 105 98-107 mmol/L Carbon Dioxide Level 25 20-31 mmol/L Anion Gap 11 5-15 Blood Urea Nitrogen 16 9-23 mg/dL Creatinine 0.80 0.550-1.02 mg/dL Glomerular Filtration Rate Calc 72 >90 mL/min BUN/Creatinine Ratio 20.0 10.0-20.0 Serum Glucose 98 74-106 mg/dL Lactic Acid Level 1.2 0.4-2.0 mmol/L Calcium Level 9.5 8.7-10.4 mg/dL Time of 1ST Reevaluation: 14:03 Reevaluation 1ST: Unchanged Patient Education/Counseling: Diagnosis, Treatment Family Education/Counseling: Diagnosis, Treatment Departure 1 Departure Time of Disposition: 13:05 (Patient presents with a left-sided facial droop. Workup so far is benign however given we will admit patient for further workup and expert consultation) Impression: Primary Impression: Facial droop Additional Impression: Suspected cerebrovascular accident (CVA) Disposition: ADMITTED INPATIENT Admit to: Tele Condition: Guarded Critical Care Note Critical Care Time?: Yes Critical care comment: Suspected CVA Authorized and Performed by: Rudolph Gonzalez MD Total critical care time: Approximately 39 minutes Due to a high probability of clinically significant, life threatening deteri oration, the patient required my highest level of preparedness to intervene emergently and I personally spent this critical care time directly and personally managing the patient. This critical care time included obtaining a history; examining the patient; pulse oximetry; ordering and review of studies; arranging urgent treatment with development of a management plan; evaluation of patient's response to treatment; frequent reassessment; and, discussions with other providers. This critical care time was performed to assess and manage the high probability of imminent, life-threatening deterioration that could result in multi-organ zia lure. It was exclusive of separately billable procedures and treating other patients and teaching time. Please see my other sections and the rest of the note for further information on patient assessment and treatment. Stability Stability form required: No Heart Score Heart Score: Heart Score Response (Comments) Value History N/A 0 EKG N/A 0 Age N/A 0 Risk Factors N/A 0 Troponin N/A 0 Total 0 I personally scribed for RUDOLPH GONZALEZ MD ([email or web address]) on 03/03/25 at 13:08. Electronically submitted by Kyle Concepcion ([email or web address]). RUDOLPH GONZALEZ MD Mar 03, 2025 13:08
[2025-03-03 14:10] VITALS: PULSE 68; RESP 12; O2SAT 96
[2025-03-03 14:12] LABS: Hematocrit 45.6 % (36.0-46.0); Hemoglobin 15.3 g/dL (12.2-16.2); Mean Corpuscular Hemoglobin 30.9 pg (28.0-32.0); Mean Corpuscular Volume 92.2 fL (80.0-100.0); Nucleated Red Blood Cells % 0.1 %
--- NOTE | 2025-03-03 14:13 | DVH ---
EXAM: CT HEAD WITHOUT CONTRAST INDICATION: fall TECHNIQUE: CT of the head without intravenous contrast. Radiation Dose Information: CT Dose: CTDI volume is 62.3 mGy. Dose-length product is 1227.51 mGy*cm The dose indicators for CT are the volume Computed Tomography (CT) Dose Index (CTDIvol) and the Dose Length Product (DLP), and are measured in units of mGy and mGy-cm, respectively. These indicators are not patient dose, but values generated from the CT scanner acquisition factors. The report includes radiation exposure data for exposures received during this examination. COMPARISON: CT HEAD WITHOUT CONTRAST on DOS: 09/11/23 FINDINGS: There is no evidence of acute intracranial hemorrhage, extra-axial collection, mass effect, midline shift, herniation or hydrocephalus. The ventricles, sulci and cisterns are age appropriate. The kurtz-white differentiation is intact. Patchy periventricular and subcortical white matter hypoattenuation is nonspecific but may be related to small vessel ischemic disease. The visualized paranasal sinuses and mastoid air cells are clear. The surrounding soft tissues and osseous structures are unremarkable. IMPRESSION: No acute intracranial abnormality.
[2025-03-03 14:19] LABS: Chloride 105 mmol/L (98-107); Potassium 4.4 mmol/L (3.5-5.1); Sodium 141 mmol/L (136-145)
[2025-03-03 14:20] LABS: Anion Gap 11 (5-15); Calcium 9.5 mg/dL (8.7-10.4); Carbon Dioxide 25 mmol/L (20-31)
[2025-03-03 14:25] LABS: BUN/Creatinine Ratio 20.0 (10.0-20.0); Blood Urea Nitrogen 16 mg/dL (9-23); Glucose 98 mg/dL (74-106)
[2025-03-03 14:35] LABS: INR 1.09 (0.9-1.15); Partial Thromboplastin Time 29.3 SEC (24.5-34.5); Prothrombin Time 11.5 sec (9.3-11.8)
--- NOTE | 2025-03-03 15:09 | DVH ---
CHEST RADIOGRAPH Indication: facial Technique: Single frontal view of the chest was obtained. Comparison: XY CHEST PORTABLE on DOS: 09/11/23 Findings: No focal consolidation. No significant pleural effusion. No pneumothorax. Stable cardiomediastinal silhouette. IMPRESSION: No acute cardiopulmonary process.
[2025-03-03] MEDS ORDERED: MORPHINE SULFATE INJ 2 MG/ml SYRG IV PRN (17:15)
[2025-03-03] MEDS ORDERED: ONDANSETRON HCL 4 MG/2 ML VIAL IV PRN (17:15)
[2025-03-03] MEDS ORDERED: ACETAMINOPHEN 325 MG TAB PO PRN (17:15)
[2025-03-03] MEDS ORDERED: NITROGLYCERIN 0.4 MG SL TAB SL PRN (17:15)
[2025-03-03] MEDS ORDERED: HYDROcodone-ACET 5/325MG TAB PO PRN (17:15)
[2025-03-03] MEDS ORDERED: DOCUSATE SOD 100 MG CAP PO PRN (17:15)
--- NOTE | 2025-03-03 17:40 | ECG ---
[facility] Test Date: 2025-03-03 Test Time: 17:02:35 Pat Name: ABHI SCHAEFER Department: ED Room: [address] [place] [address] Gender: F Vice President Industrial Relations: ER : 1940 Requested By: RUDOLPH GONZALEZ Order Number: [id number] Reading MD: Dale Fletcher Measurements Intervals [place] Rate: 64 P: 50 CA: 212 QRS: 3 QRSD: 102 T: 114 QT: 381 QTc: 393 Interpretive Statements Sinus rhythm Atrial premature complex Borderline prolonged CA interval Low voltage, precordial leads RSR' in V1 or V2, right VCD or RVH Abnormal T, consider ischemia, lateral leads Minimal ST elevation, anterior leads Baseline wander in lead(s) V1 Electronically Signed On 03-03-2025 18:55:51 PST by Dale Fletcher Please click the below link to view image of tracing.
--- NOTE | 2025-03-03 17:50 | DVHHP2 ---
History of Present Illness Reason for Visit: Left sided facial droop History of Present Illness Lurdes Dunham is an 84-year-old female with past medical history of CHF, hypertension, hyperlipidemia, and coronary artery disease, who came to the hospital for left facial numbness and droop. Patient states before going to bed last night she started feeling a heaviness/numbness on her left upper cheek. She went to sleep and woke up and the feeling had moved to her lower face. Her daughter states she also noticed a facial droop on her left side. This prompted her to come to the hospital. At time of assessment there is a slight left facial droop and the patient states her symptoms have improved, but the left side of her face still fills slightly off. While at bedside patient was having periods of atrial fibrillation. She states she follows with Dr. Fletcher for cardiology. She is not sure if she has ever been diagnosed with atrial fibrillation, but she does take a blood thinner and she does not know why. Patient had an ECHO completed here on 07/06/2024. Cardiovascular: CHF, HTN, hyperipidemia, Other (PTCA) Past Surgical History: Other (PTCA), Total knee replacement (left) Smoke: No ALCOHOL: none Drugs: None Lives: with Family Domestic Violence: Neg Review of Systems Constitutional: No: Fever, Chills, Sweats, Weakness, Malaise, Other Eyes: No: Pain, Vision change, Conjunctivae inflammation, Eyelid inflammation, Other, Redness ENT: No: Ear pain, Ear discharge, Nose pain, Nose discharge, Nose congestion, Mouth pain, Mouth swelling, Throat pain, Throat swelling, Other Respiratory: No: Cough, Dry, Shortness of breath, SOB with excertion, Wheezing, Hemoptysis, Pleuritic Pain, Sputum, Wheezing, Other Cardiovascular: No: Chest Pain, Palpitations, Orthopnea, Paroxysmal Noc. Dyspnea, Edema, Lt Headedness, Other Gastrointestinal: No: Nausea, Vomiting, Abdominal Pain, Diarrhea, Constipation, Melena, Hematochezia, Other Genitourinary: No Dysuria, No Frequency, No Incontinence, No Hematuria, No Retention, No Other Musculoskeletal: No: other, neck pain, shoulder pain, arm pain, back pain, hand pain, leg pain, foot pain Skin: No: Rash, Lesions, Jaundice, Bruising, Other Neurological: Numbness (left face); No: Weakness, Incoordination, Change in speech, Confusion, Seizures, Other Allergies: Coded Allergies: NO KNOWN ALLERGIES (Unverified , 02/19/22) Medications Current Medications Medications Dose Ordered Sig/Yue Route Start Time Stop Time Status Last Admin Dose Admin Acetaminophen/ Hydrocodone Bitart 1 tab Q4HP PRN PO 03/03/25 17:15 UNV Ondansetron HCl 4 mg Q4HP PRN IV 03/03/25 17:15 UNV Docusate Sodium 100 mg BIDPRN PRN PO 03/03/25 17:15 UNV Acetaminophen 650 mg Q6HP PRN PO 03/03/25 17:15 UNV Nitroglycerin 0.4 mg Q5MINP PRN SL 03/03/25 17:15 UNV Morphine Sulfate 2 mg Q30M PRN IV 03/03/25 17:15 UNV Exam Vital Signs Vital Signs Date Time Temp Pulse Resp B/P (MAP) Pulse Ox O2 Delivery O2 Flow Rate FiO2 03/03/25 16:00 98.0 68 19 163/65 (97) 93 98.0 03/03/25 14:10 Room Air* 0 21 General Appearance: Alert, Oriented X3, Cooperative, mild distress HEENT: Atraumatic, PERRLA Respiratory: Clear to auscultation, Normal air movement Cardiovascular: Normal S1, Normal S2 Abdominal: Normal bowel sounds, Soft, No tenderness, No hepatospenomegaly Extremities: No clubbing, No cyanosis, No edema, Normal pulses, No tenderness/swelling Skin: No rashes, No breakdown, No significant lesion Neuro: Normal gait, Normal speech, Strength at 5/5 X4 ext, Normal tone Psych/Mental Status: Mental status NL, Mood NL Labs/Xrays Labs Test 03/03/25 16:44 03/03/25 13:45 Range/Units White Blood Count 8.5 4.4-10.8 10^3/uL Red Blood Count 4.95 4.0-5.20 10^6/uL Hemoglobin 15.3 12.2-16.2 g/dL Hematocrit 45.6 36.0-46.0 % Mean Corpuscular Volume 92.2 80.0-100.0 fL Mean Corpuscular Hemoglobin 30.9 28.0-32.0 pg Mean Corpuscular Hemoglobin Concent 33.5 32.0-36.0 g/dL Red Cell Distribution Width 13.2 11.8-14.3 % Platelet Count 200 140-450 10^3/uL Mean Platelet Volume 8.1 6.9-10.8 fL Neutrophils (%) (Auto) 65.6 37.0-80.0 % Lymphocytes (%) (Auto) 25.2 10.0-50.0 % Monocytes (%) (Auto) 7.4 0.0-12.0 % Eosinophils (%) (Auto) 1.3 0.0-7.0 % Basophils (%) (Auto) 0.5 0.0-2.0 % Neutrophils # (Auto) 5.6 1.6-8.6 10 ^3/uL Lymphocytes # (Auto) 2.2 0.4-5.4 10 ^3/uL Monocytes # (Auto) 0.6 0-1.3 10 ^3/uL Eosinophils # (Auto) 0.1 0-0.8 10 ^3/uL Basophils # (Auto) 0 0-0.2 10 ^3/uL Nucleated Red Blood Cells 0.1 % Prothrombin Time 11.5 9.3-11.8 sec Prothrombin Time INR 1.09 0.9-1.15 Activated Partial Thromboplast Time 29.3 24.5-34.5 SEC Sodium Level 141 136-145 mmol/L Potassium Level 4.4 3.5-5.1 mmol/L Chloride Level 105 98-107 mmol/L Carbon Dioxide Level 25 20-31 mmol/L Anion Gap 11 5-15 Blood Urea Nitrogen 16 9-23 mg/dL Creatinine 0.80 0.550-1.02 mg/dL Glomerular Filtration Rate Calc 72 >90 mL/min BUN/Creatinine Ratio 20.0 10.0-20.0 Serum Glucose 98 74-106 mg/dL Lactic Acid Level 1.2 0.4-2.0 mmol/L Calcium Level 9.5 8.7-10.4 mg/dL EXAM: CT HEAD WITHOUT CONTRAST FINDINGS: There is no evidence of acute intracranial hemorrhage, extra-axial collection, mass effect, midline shift, herniation or hydrocephalus. The ventricles, sulci and cisterns are age appropriate. The kurtz-white differentiation is intact. Patchy periventricular and subcortical white matter hypoattenuation is nonspecific but may be related to small vessel ischemic disease. The visualized paranasal sinuses and mastoid air cells are clear. The surrounding soft tissues and osseous structures are unremarkable. IMPRESSION: No acute intracranial abnormality. CHEST RADIOGRAPH Findings: No focal consolidation. No significant pleural effusion. No pneumothorax. Stable cardiomediastinal silhouette. IMPRESSION: No acute cardiopulmonary process. SEPSIS Sepsis Screen Date sepsis recognized/suspect: Mar 03, 2025 Time Sepsis recognized/suspect: 1409 Recent Procedure: No On Antibiotic Therapy: No Respiratory Rate >20: No Heart Rate >90: No Temp<36 C (96.8 F) or >38.3 C: No SBP <90 or MAP <65 mmHG: No New Acute Mental Status Change: No Is the patient on CPAP, BIPAP,: No Physician Orders Chest Portable (03/03/25 13:29) Head Without Contrast (03/03/25 13:29) Electrocardigram (03/03/25 13:29) Urinalysis (03/03/25 13:29) Troponin-I Hs (03/03/25 16:29) Electrocardigram (03/03/25 14:29) Electrocardigram (03/03/25 16:29) * Neurology Consult (03/03/25 15:29) Admit (03/03/25 17:07) Code Status (03/03/25 17:07) 2 Gm Sodium Diet (03/03/25 Dinner) Hydrocodone-Acet 5/325mg Tab ([place] /32 (03/03/25 17:15) Ondansetron Hcl (Zofran) (03/03/25 17:15) Docusate Sodium Capsule (Colace Capsule) (03/03/25 17:15) Complete Blood Count (03/04/25 04:00) Comprehensive Metabolic Panel (03/04/25 04:00) Condition: Serious (03/03/25 17:07) Acetaminophen Tablet (Tylenol Tablet) (03/03/25 17:15) Nitroglycerin Sublingual (Ntrostat Subli (03/03/25 17:15) Morphine Sulfate Injection (03/03/25 17:15) Stat Ekg For Chest Pain (03/03/25 17:07) Notify Md Of Changes From Base (03/03/25 17:07) Billet Bed Operator For 24 Hours (03/03/25 17:07) Emergency Dysrhythmia Protocol (03/03/25 17:07) Rhythm Strips Once Every Shift (03/03/25 17:07) Oxygen By Nasal Cannula (03/03/25 17:07) Carotid Duplx W Color Dop (03/03/25 17:07) Vital Signs Date Time Temp Pulse Resp B/P (MAP) Pulse Ox O2 Delivery O2 Flow Rate FiO2 03/03/25 16:00 98.0 68 19 163/65 (97) 93 98.0 03/03/25 16:00 67 03/03/25 14:20 68 12 157/71 (99) 96 03/03/25 14:10 68 12 96 Room Air* 0 21 03/03/25 12:11 98.9 78 15 178/90 100 98.9 Laboratory Tests Test 03/03/25 13:45 Lactic Acid Level 1.2 mmol/L (0.4-2.0) White Blood Count 8.5 10^3/uL (4.4-10.8) Assessment/Plan Assessment/Plan Assessment: Suspected cerebrovascular accident (CVA), Possible TIA, CHF, Hypertension, Hyperlipidemia, Plan: Admit to Tele, Neurology consult, Consider MRI of brain, EKG, Consider cardiology consult, Home medications reconciled, Plan discussed with: Patient, Daughter My Orders Orders - LIANET BOWEN Procedure Category Date Status Time Admit ADMIT 03/03/25 Transmitted 17:07 Code Status CODE 03/03/25 Transmitted 17:07 2 Gm Sodium Diet DIET 03/03/25 Transmitted Dinner Hydrocodone-Acet PHA 03/03/25 Logged 5/325mg Tab ([place] 17:15 Ondansetron Hcl PHA 03/03/25 Logged (Zofran) 17:15 Docusate Sodium PHA 03/03/25 Logged Capsule (Colace 17:15 Complete Blood Count LAB 03/04/25 Verified 04:00 Comprehensive LAB 03/04/25 Verified Metabolic Panel 04:00 Condition: Serious JAMIE 03/03/25 In Process 17:07 Acetaminophen Tablet PHA 03/03/25 Logged (Tylenol Tablet) 17:15 Nitroglycerin PHA 03/03/25 Logged Sublingual (Ntrostat 17:15 Morphine Sulfate PHA 03/03/25 Logged Injection 17:15 Stat Ekg For Chest JAMIE 03/03/25 In Process Pain 17:07 Notify Of Changes BANNER 03/03/25 In Process From Base 17:07 Billet Bed Operator For BANNER 03/03/25 In Process 24 Hours 17:07 Emergency Dysrhythmia BANNER 03/03/25 In Process Protocol 17:07 Rhythm Strips Once BANNER 03/03/25 In Process Every Shift 17:07 Oxygen By Nasal RT 03/03/25 Transmitted Cannula 17:07 Carotid Duplx W Color US 03/03/25 Logged DOP 17:07 Date of Service: Mar 03, 2025 Billing Provider: LIANET BOWEN Common Visit Codes: [id number] INP/OBS CARE (MOD) LIANET BOWEN Mar 03, 2025 17:50
[2025-03-03] MEDS ORDERED: LOSA-534 PO (17:51)
--- NOTE | 2025-03-03 18:57 | DVH ---
Indication: Suspected cerebrovascular accident (CVA) Technique: Real-time ultrasound images of the neck vessels with kurtz-scale, color and wave Doppler were obtained. Comparison: None Findings: [id number] atherosclerotic plaque bilaterally. The following peak systolic velocities were recorded in cm/sec: Right internal carotid: 69 Right common carotid: 77 Right external carotid: 139 Right internal/common carotid ratio: 0.9 Left internal carotid: 88 Left common carotid: 72 Left external carotid: 82 Left internal/common carotid ratio: 1.2 Right vertebral artery: Patent with normal antegrade direction of flow. Left vertebral artery: Patent with normal antegrade direction of flow. Impression: No hemodynamically significant stenosis by velocity criteria of the internal carotid artery. [id number] atherosclerotic plaque bilaterally. Elevated right ECA velocity may represent hemodynamically significant stenosis greater than 50%.
--- NOTE | 2025-03-03 21:10 | DVHINCON2 ---
Date of service: Mar 03, [address] Calabrese Reason for Consultation Left-sided facial droop History of Present Illness Ms. Casillas is a 84 years old right-handed female with a history of hypertension, dyslipidemia, coronary artery disease, congestive heart failure, she came to the [facility] on 03/03/25 with a chief complaint of facial droop. At this time, she is alert and fully oriented, she provided the following history I saw her on 09/11/2023 for right arm weakness and pain In the evening on 03/02/2025, her left eye and facial were drooping, she has a family concerning possible stroke, and decided to bring her to medical attention. Otherwise she denies headache, chest pain, vision change, weakness numbness in the arms and legs, she denies a history of stroke or similar problems previously In the ER on 03/03/2025, the patient is noticed to have atrial fibrillation on the telemetry. She sees Dr. Fletcher, but she is not aware of diagnosis of AFib CBC, 03/03/2025: Unremarkable BMP, 03/03/2025: Unremarkable TG/CHO L/LDL/HDL, 08/16/2023: 90/124/44/55, 01/20/2025: 104/138/59/65 Vitamin B12, 01/20/25: 378 TSH, 01/20/2025: 2.83 FT4, 01/20/2025: 1.12 Carotid Doppler, 03/03/2025: No hemodynamically significant stenosis by velocity criteria of the internal carotid artery CT head, 03/03/2025: No acute intracranial abnormality MRI C-spine, 07/13/2023: Multilevel moderate degenerative changes of the cervical spine as detailed above. Moderate right with severe left neural foraminal stenosis at C2-C3, moderate to severe left neural foraminal stenosis at C3-C4, moderate left neural foraminal stenosis at C4-C5 and C5-C6 with moderate right neural foraminal stenosis at C6-C7 from uncovertebral hypertrophy and facet osteoarthritis. There is minimal T2/FLAIR hyperintense cord signal throughout the cervical spine which may be associated with mild transverse myelitis Past Medical History Hypertension, dyslipidemia, coronary artery disease, congestive heart failure, Past Surgical History PTCA and stenting, knee replacement Family History: Diabetes mellitus FH: breast cancer G8 MOTHER FHx: heart disease G8 FATHER G8 BROTHER G8 SISTER Tumor Family History Diabetes, tremors, heart disease, cancer Social History She was a tobacco smoker, but no history of alcohol or recreational substance abuse Allergies: Coded Allergies: NO KNOWN ALLERGIES (Unverified , 02/19/22) Home Meds Reported Medications Losartan Potassium (Losartan Potassium) 50 Mg Tab, 1 TAB PO DAILY 03/03/25 Clopidogrel Bisulfate (CLOPIDOGREL) 75 Mg Tab, 1 TAB PO DAILY 09/11/23 Apixaban Base (ELIQUIS) 5 Mg Tab, 1 TAB PO BID for CAD 12/19/22 Spironolactone (Spironolactone) 25 Mg Tab, 1 TAB PO DAILY for CHF 12/26/21 Atorvastatin Calcium (Lipitor) 40 Mg Tab, 1 TAB PO QPM for HYPERLIPIDEMIA 12/26/21 Carvedilol (Carvedilol) 6.25 Mg Tab, 1 TAB PO BIDWM for HYPERTENSION 12/26/21 Discontinued Reported Medications Aspirin (Aspirin Low Dose) 81 Mg Tab, 1 TAB PO DAILY 09/11/23 Ezetimibe (Zetia) 10 Mg Tab, 1 TAB PO QPM for HYPERLIPIDEMIA 12/26/21 Lisinopril (Lisinopril) 10 Mg Tab, 1 TAB PO DAILY for HYPERTENSION 12/26/21 Discontinued Scripts Diclofenac Epolamine (Diclofenac Epolamine) 1.3 % Dis, 1 % TD DAILY for 10 Days, #1 DIS Prov:RA HAIRSTON RESIDENT 09/12/23 Lidocaine (LIDODERM 5% TOPICAL PATCH) 1 Patch Ph, 1 PATCH TOP DAILY, #30 PATCH 1 Refill Prov:RA HAIRSTON RESIDENT 09/12/23 Acetaminophen (Acetaminophen) 325 Mg Tab, 650 MG PO Q6HP PRN for 10 Days, #80 TAB Prov:RA HAIRSTON RESIDENT 09/12/23 Current Medications Current Medications Medications (Trade) Dose Ordered Sig/Yue Route PRN Reason Start Time Stop Time Status Last Admin Acetaminophen/ Hydrocodone Bitart ([place] 5/325MG Tab) 1 tab Q4HP PRN PO MODERATE PAIN (4-6 PAIN SCALE) 03/03/25 17:15 Ondansetron HCl (Zofran) 4 mg Q4HP PRN IV NAUSEA / VOMITING 03/03/25 17:15 Docusate Sodium (Colace Capsule) 100 mg BIDPRN PRN PO FOR CONSTIPATION 03/03/25 17:15 Acetaminophen (Tylenol Tablet) 650 mg Q6HP PRN PO PAIN SCALE 1-3 OR TEMP>100.4 03/03/25 17:15 Nitroglycerin (Ntrostat Sublingual) 0.4 mg Q5MINP PRN SL FOR CHEST PAIN 03/03/25 17:15 Morphine Sulfate 2 mg Q30M PRN IV FOR CHEST PAIN 03/03/25 17:15 Apixaban (Eliquis) 5 mg BID PO 03/03/25 22:00 Clopidogrel Bisulfate (Plavix) 75 mg DAILY PO 03/04/25 10:00 Spironolactone (Aldactone) 25 mg DAILY PO 03/04/25 10:00 Atorvastatin Calcium (Lipitor) 40 mg HS PO 03/03/25 22:00 Carvedilol (Coreg Tablet) 6.25 mg BIDWM PO 03/04/25 08:00 Losartan Potassium (Cozaar Tablet) 50 mg DAILY PO 03/04/25 10:00 Review of Systems As above, the other system negative Vital Signs Vital Signs Date Time Temp Pulse Resp B/P (MAP) Pulse Ox O2 Delivery O2 Flow Rate FiO2 03/03/25 18:00 72 17 148/76 (100) 98 03/03/25 16:00 98.0 98.0 03/03/25 14:10 Room Air* 0 21 Physical Exam GENERAL EXAM: General: the patient is well developed and nourished. No acute distress. HEENT: Normocephalic, neck is supple, no carotid bruits. No mass. RESPIRATORY: Normal respiratory effort with symmetrical lung expansion. Lungs clear to auscultation. CARDIOVASCULAR: Regular rate and rhythm with no murmurs. S1, S2. ABDOMEN: Soft, nontender, normal bowel sound NEUROLOGICAL: MENTAL STATUS: Awake and alert. Oriented to person, place, time and general circumstances. Able to give personal history SPEECH, LANGUAGE, HIGHER CORTICAL FUNCTION: no aphasia or dysathria. CRANIAL NERVES: #2: Intact visual barnes to confrontation. The optic discs were sharp. #3,4,6: Pupils are equal, round and reactive. EOMs full and conjugate. #5: Facial sensation intact in all three divisions bilaterally. Mandibular stre ngth intact. #7: Facial muscles symmetrical and strength intact. #8: Hearing grossly normal to voice. #9,10: Uvula and soft palate rise in the midline. Swallow and voice are normal. #11: Trapezius and sternomastoid strength intact bilaterally. #12: Tongue midline. No fasciculations or atrophy. SENSATION: Sensation to touch and pinprick is normal. MOTOR: Normal tone in the upper and lower extremity. Normal muscle bulk. No fasciculations. No abnormal movements or posturing. Muscle strength of the major groups in the upper extremities is 5/5. Muscle strength of the major groups in the lower extremities is 5/5. REFLEXES: Deep tendon reflexes are symmetrical. No pathological reflexes. CEREBELLAR/COORDINATION: Finger to nose and heel she needs tests are normal bilaterally. GAIT/STATION: deferred. Labs/Diagnostic Data Labs Test 03/03/25 16:44 03/03/25 13:45 Range/Units Troponin I High Sensitivity 23 </=34 ng/L White Blood Count 8.5 4.4-10.8 10^3/uL Red Blood Count 4.95 4.0-5.20 10^6/uL Hemoglobin 15.3 12.2-16.2 g/dL Hematocrit 45.6 36.0-46.0 % Mean Corpuscular Volume 92.2 80.0-100.0 fL Mean Corpuscular Hemoglobin 30.9 28.0-32.0 pg Mean Corpuscular Hemoglobin Concent 33.5 32.0-36.0 g/dL Red Cell Distribution Width 13.2 11.8-14.3 % Platelet Count 200 140-450 10^3/uL Mean Platelet Volume 8.1 6.9-10.8 fL Neutrophils (%) (Auto) 65.6 37.0-80.0 % Lymphocytes (%) (Auto) 25.2 10.0-50.0 % Monocytes (%) (Auto) 7.4 0.0-12.0 % Eosinophils (%) (Auto) 1.3 0.0-7.0 % Basophils (%) (Auto) 0.5 0.0-2.0 % Neutrophils # (Auto) 5.6 1.6-8.6 10 ^3/uL Lymphocytes # (Auto) 2.2 0.4-5.4 10 ^3/uL Monocytes # (Auto) 0.6 0-1.3 10 ^3/uL Eosinophils # (Auto) 0.1 0-0.8 10 ^3/uL Basophils # (Auto) 0 0-0.2 10 ^3/uL Nucleated Red Blood Cells 0.1 % Prothrombin Time 11.5 9.3-11.8 sec Prothrombin Time INR 1.09 0.9-1.15 Activated Partial Thromboplast Time 29.3 24.5-34.5 SEC Sodium Level 141 136-145 mmol/L Potassium Level 4.4 3.5-5.1 mmol/L Chloride Level 105 98-107 mmol/L Carbon Dioxide Level 25 20-31 mmol/L Anion Gap 11 5-15 Blood Urea Nitrogen 16 9-23 mg/dL Creatinine 0.80 0.550-1.02 mg/dL Glomerular Filtration Rate Calc 72 >90 mL/min BUN/Creatinine Ratio 20.0 10.0-20.0 Serum Glucose 98 74-106 mg/dL Lactic Acid Level 1.2 0.4-2.0 mmol/L Calcium Level 9.5 8.7-10.4 mg/dL Assessment Left facial weakness, not confirmed on physical examination, likely resolved Rule out acute stroke Atrial fibrillation Plan/Recommendation Monitoring Supportive treatment Telemetry Echocardiogram MR brain scan Eliquis 5 mg b.i.d. Lipitor 40 mg daily More recommendation per clinical course Plan discussed with: Patient, Other PAT BENITEZ MD Mar 03, 2025 21:10
[2025-03-03 22:20] VITALS: BP 170/84; PULSE 78; RESP 18; TEMP 97.1; O2SAT 95
[2025-03-03 22:46] LABS: Urine Protein, UAD Negative (Negative)
[2025-03-03 23:00] VITALS: BP 170/84; PULSE 78; RESP 18; TEMP 97.1; O2SAT 95
[2025-03-03] MEDS: ATORVASTATIN 20 MG TAB PO SCH (23:21)
[2025-03-03] MEDS: APIXABAN 5 MG TAB PO SCH (23:21)
[2025-03-04] VITALS (8 sets, daily range): BP systolic 121–148; BP diastolic 64–75; PULSE 37–104; RESP 16–18; TEMP 97.5–98.1; O2SAT 93–97
[2025-03-04] MEDS: PNEUMOCOCCAL VACC POLYS 25 MCG/0.5 ML VIAL IM ONE
[2025-03-04 06:42] LABS: Hematocrit 42.3 % (36.0-46.0); Hemoglobin 14.2 g/dL (12.2-16.2); Mean Corpuscular Hemoglobin 30.7 pg (28.0-32.0); Mean Corpuscular Volume 91.6 fL (80.0-100.0); Nucleated Red Blood Cells % 0.1 %
[2025-03-04 07:01] LABS: Alanine Aminotransferase 20 U/L (7-40); Alkaline Phosphatase 82 U/L (46-116); Anion Gap 11 (5-15); BUN/Creatinine Ratio 16.7 (10.0-20.0); Blood Urea Nitrogen 13 mg/dL (9-23); Calcium 9.4 mg/dL (8.7-10.4); Carbon Dioxide 25 mmol/L (20-31); Chloride 107 mmol/L (98-107); Glucose 91 mg/dL (74-106); Potassium 3.9 mmol/L (3.5-5.1); Sodium 143 mmol/L (136-145); Total Protein 6.4 g/dL (5.7-8.2)
[2025-03-04 07:02] LABS: Albumin 3.9 g/dL (3.2-4.8); Bilirubin, Total 0.8 mg/dL (0.2-1.0)
--- NOTE | 2025-03-04 09:30 | DVH ---
CLINICAL HISTORY: CVA TECHNIQUE: Routine multiplanar imaging of the brain was performed without gadolinium contrast. COMPARISON: CT HEAD WITHOUT CONTRAST on DOS: 03/03/25, CT HEAD WITHOUT CONTRAST on DOS: 09/11/23 FINDINGS: There is no abnormal restricted diffusion to suggest acute infarction. There are scattered T2 hyperintense foci within the white matter both cerebral hemispheres, which are most compatible with a mild burden of nonspecific chronic small vessel ischemic change. There is no evidence for acute ischemic changes, mass, mass effect, or extra- axial fluid collection. There is no hydrocephalus or midline shift. The cerebral sulci and subarachnoid cisterns are not effaced. The imaged paranasal sinuses are clear. There has been bilateral cataract extraction. The midline structures, including the corpus callosum, are unremarkable. The intracranial flow voids are maintained. IMPRESSION: No acute intracranial abnormality seen. No evidence for acute infarct. Mild chronic small vessel ischemic change. Bilateral cataract extraction.
[2025-03-04] MEDS: SPIRONOLACTONE 25 MG TAB PO SCH (09:33)
[2025-03-04] MEDS: CARVEDILOL 3.125 MG TAB PO SCH (09:33)
[2025-03-04] MEDS: LOSARTAN POTASSIUM 50 MG TAB PO SCH (09:34)
[2025-03-04] MEDS ORDERED: CLOPIDOGREL BISULFATE 75 MG TAB PO SCH (10:00)
--- NOTE | 2025-03-04 15:56 | DVHPN2 ---
Subjective I am assuming the care of the patient from today onwards. Chart reviewed consulted note reviewed. Patient's brain MRI shows no evidence of any acute infarct. Changes from previous H/P or p: No Changes Eyes: No Pain, No Vision change, No Conjunctivae inflammation, No Eyelid inflammation, No Other, No Redness ENT: No Ear pain, No Ear discharge, No Nose pain, No Nose discharge, No Nose congestion, No Mouth pain, No Mouth swelling, No Throat pain, No Throat swelling, No Other Cardiovascular: No Chest Pain, No Palpitations, No Orthopnea, No Paroxysmal Noc. Dyspnea, No Edema, No Lt Headedness, No Other Respiratory: No Cough, No Dry, No Shortness of breath, No SOB with excertion, No Wheezing, No Hemoptysis, No Pleuritic Pain, No Sputum, No Other Gastrointestinal: No Nausea, No Vomiting, No Abdominal Pain, No Diarrhea, No Constipation, No Melena, No Hematochezia, No Other Genitourinary: No Dysuria, No Frequency, No Incontinence, No Hematuria, No Retention, No Other Musculoskeletal: No other, No neck pain, No shoulder pain, No arm pain, No back pain, No hand pain, No leg pain, No foot pain Skin: No Rash, No Lesions, No Jaundice, No Bruising, No Other Objective Vitals Vital Signs Date Time Temp Pulse Resp B/P (MAP) Pulse Ox O2 Delivery O2 Flow Rate FiO2 03/04/25 13:00 97.9 37 16 138/70 (92) 93 97.9 03/04/25 08:00 Room Air* 0 21 Intake/Output Intake and Output 03/04/25 07:00 Intake Total 200 ml Balance 200 ml Intake Oral 200 ml # Voids 1 Exam HEENT pupils are reactive, positive left facial droop Neck is supple CV is S1-S2 regular rate and rhythm Respiratory are clear GI positive bowel sound Extremity no edema 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 Medications Current Medications Medications Dose Ordered Sig/Yue Route Start Time Stop Time Status Last Admin Dose Admin Acetaminophen/ Hydrocodone Bitart 1 tab Q4HP PRN PO 03/03/25 17:15 Ondansetron HCl 4 mg Q4HP PRN IV 03/03/25 17:15 Docusate Sodium 100 mg BIDPRN PRN PO 03/03/25 17:15 Acetaminophen 650 mg Q6HP PRN PO 03/03/25 17:15 Nitroglycerin 0.4 mg Q5MINP PRN SL 03/03/25 17:15 Morphine Sulfate 2 mg Q30M PRN IV 03/03/25 17:15 Apixaban 5 mg BID PO 03/03/25 22:00 03/04/25 09:34 5 MG Spironolactone 25 mg DAILY PO 03/04/25 10:00 03/04/25 09:33 25 MG Atorvastatin Calcium 40 mg HS PO 03/03/25 22:00 03/03/25 23:21 40 MG Carvedilol 6.25 mg BIDWM PO 03/04/25 08:00 03/04/25 09:33 6.25 MG Losartan Potassium 50 mg DAILY PO 03/04/25 10:00 03/04/25 09:34 50 MG Laboratory Results Laboratory Tests 03/04/25 05:31 Chemistry Test 03/04/25 05:31 Albumin 3.9 g/dL (3.2-4.8) Calcium Level 9.4 mg/dL (8.7-10.4) Total Protein 6.4 g/dL (5.7-8.2) LFT Test 03/04/25 05:31 Alanine Aminotransferase (ALT) 20 U/L (7-40) Alkaline Phosphatase 82 U/L (46-116) Aspartate Amino Transferase (AST) 20 U/L (13-40) Total Bilirubin 0.8 mg/dL (0.2-1.0) Urinalysis Test 03/03/25 22:17 Urine Color Colorless (Yellow) Urine Clarity Turbid (Clear) H Urine pH 5.5 (5.0-9.0) Urine Specific [place] 1.009 (1.001-1.035) Urine Protein Negative (Negative) Urine Ketones Negative (Negative) Urine Blood Trace /uL (Negative) H Urine Nitrite Negative (Negative) Urine Bilirubin Negative (Negative) Urine Urobilinogen Normal mg/dL (Negative) Urine Leukocyte Esterase 3+ /uL (Negative) Urine RBC 1 /hpf (0 - 4) Urine Microscopic WBC 289 /HPF (0-5) H Urine Squamous Epithelial Cells Few /hpf (<5) Urine Bacteria Few /hpf (None Seen) H Urine Glucose Normal mg/dL (Normal) Assessment/Plan Assessment/Plan 84-year-old female with a known history of congestive heart failure, hypertension, dyslipidemia, coronary artery disease presented to the hospital with a left facial droop found to have 1. Left facial droop ruled out acute CVA 2. Bradycardia asymptomatic suspected secondary to carvedilol 3. Hypertension Four dyslipidemia 5. Congestive heart failure currently compensated -hold beta leandro, continue aspirin statin, follow up Neurology, 2D echo and cardiology consultation. Plan discussed with: Patient Date of Service: Mar 04, 2025 Billing Provider: RITA MURPHY MD Common Visit Codes: [id number] INP/OBS CARE(HIGH) RITA MURPHY MD Mar 04, 2025 15:56
--- NOTE | 2025-03-04 17:24 | DVHINCON2 ---
Date Seen: Mar 04, 2025 Referring Physician MD oNble Reason for Consultation Bradycardia History of Present Illness This is an 84 year old female patient who presents to emergency room with chief complaint of left-sided facial drooping. The patient reports symptoms began on the day of emergency room arrival. She denies any slurred speech or left-sided weakness. At the time of assessment, the patient denies any symptoms. Cardiology has been consulted at this time for bradycardia. Initial twelve lead electrocardiogram reveals normal sinus rhythm with first-degree conduction delay and nonspecific ST segment changes to lateral leads. Initial troponin level of 22ng/L with flat trend thereafter. Patient denies all cardiac symptoms including chest pain, palpitations, shortness of breath, or dizziness. 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 Past Medical History Past medical history reviewed. No other significant than mentioned above. Past Surgical History Left knee replacement Bilateral cataract removal Family History: Diabetes mellitus FH: breast cancer G8 MOTHER FH: heart attack G8 FATHER, , Age: 60 years and older, Cause: Heart attack, Onset:60 years & older FHx: heart disease G8 FATHER, , Age: 60 years and older, Cause: Heart attack G8 BROTHER G8 SISTER Tumor Family History Family history reviewed. Social History Patient has a 20 pack-year history, quit smoking approximately 46 years ago Denies illicit drug use Denies alcohol use Allergies: Coded Allergies: NO KNOWN ALLERGIES (Unverified , 02/19/22) Home Meds Reported Medications Losartan Potassium (Losartan Potassium) 50 Mg Tab, 1 TAB PO DAILY 03/03/25 Clopidogrel Bisulfate (CLOPIDOGREL) 75 Mg Tab, 1 TAB PO DAILY 09/11/23 Apixaban Base (ELIQUIS) 5 Mg Tab, 1 TAB PO BID for CAD 12/19/22 Spironolactone (Spironolactone) 25 Mg Tab, 1 TAB PO DAILY for CHF 12/26/21 Atorvastatin Calcium (Lipitor) 40 Mg Tab, 1 TAB PO QPM for HYPERLIPIDEMIA 12/26/21 Carvedilol (Carvedilol) 6.25 Mg Tab, 1 TAB PO BIDWM for HYPERTENSION 12/26/21 Discontinued Reported Medications Aspirin (Aspirin Low Dose) 81 Mg Tab, 1 TAB PO DAILY 09/11/23 Ezetimibe (Zetia) 10 Mg Tab, 1 TAB PO QPM for HYPERLIPIDEMIA 12/26/21 Lisinopril (Lisinopril) 10 Mg Tab, 1 TAB PO DAILY for HYPERTENSION 12/26/21 Discontinued Scripts Diclofenac Epolamine (Diclofenac Epolamine) 1.3 % Dis, 1 % TD DAILY for 10 Days, #1 DIS Prov:RA HAIRSTON RESIDENT 09/12/23 Lidocaine (LIDODERM 5% TOPICAL PATCH) 1 Patch Ph, 1 PATCH TOP DAILY, #30 PATCH 1 Refill Prov:RA HAIRSTON RESIDENT 09/12/23 Acetaminophen (Acetaminophen) 325 Mg Tab, 650 MG PO Q6HP PRN for 10 Days, #80 TAB Prov:RA HAIRSTON RESIDENT 09/12/23 Home Meds Home medications reviewed. Current Medications Current Medications Medications (Trade) Dose Ordered Sig/Yue Route PRN Reason Start Time Stop Time Status Last Admin Apixaban (Eliquis) 5 mg BID PO 03/03/25 22:00 03/04/25 09:34 Clopidogrel Bisulfate (Plavix) 75 mg DAILY PO 03/04/25 10:00 03/03/25 22:00 DC Spironolactone (Aldactone) 25 mg DAILY PO 03/04/25 10:00 03/04/25 09:33 Atorvastatin Calcium (Lipitor) 40 mg HS PO 03/03/25 22:00 03/03/25 23:21 Carvedilol (Coreg Tablet) 6.25 mg BIDWM PO 03/04/25 08:00 03/04/25 09:33 Losartan Potassium (Cozaar Tablet) 50 mg DAILY PO 03/04/25 10:00 03/04/25 09:34 Review of Systems Constitutional: No symptom reported Ears, Nose, & Throat: No symptom reported Eyes: No symptom reported Neurological: Left-sided facial droop Pulmonary/Respiratory: No symptoms reported Cardiovascular: No symptom reported Gastrointestinal: No symptom reported Genitourinary: No symptom reported Musculoskeletal: No symptom reported Skin: No symptom reported Psychiatric: No symptom reported Endocrine: No symptom reported Hematologic/Lymphatic: No symptom reported Vital Signs Vital Signs Date Time Temp Pulse Resp B/P (MAP) Pulse Ox O2 Delivery O2 Flow Rate FiO2 03/04/25 16:53 97.9 75 18 145/69 (94) 95 97.9 03/04/25 08:00 Room Air* 0 21 Physical Exam General Appearance: Cooperative. Obesity Pulmonary/Respiratory: Clear, bilateral breaths sounds. Cardiovascular/Chest: Regular rate and rhythm. Peripheral Pulses: 2+ Radial (R). 2+ Radial (L). 2+ Pedal (R). 2+ Pedal (L) Abdominal Exam: Normal bowel sounds. Ankle Exam: Negative ankle edema Lower extremities: Negative lower extremity edema Neuro/Mental Status: A/OX4, coherent. Thoughts/Psych: Normal thought pattern. Appropriate mood and affect. Good judgment and insight. Appearance: No acute distress. Skin Exam: Normal inspection. Normal color. Warm and dry. Labs/Diagnostic Data Labs Test 03/04/25 05:31 03/03/25 22:17 03/03/25 16:44 03/03/25 13:45 Range/Units White Blood Count 7.9 4.4-10.8 10^3/uL Red Blood Count 4.62 4.0-5.20 10^6/uL Hemoglobin 14.2 12.2-16.2 g/dL Hematocrit 42.3 36.0-46.0 % Mean Corpuscular Volume 91.6 80.0-100.0 fL Mean Corpuscular Hemoglobin 30.7 28.0-32.0 pg Mean Corpuscular Hemoglobin Concent 33.5 32.0-36.0 g/dL Red Cell Distribution Width 13.2 11.8-14.3 % Platelet Count 178 140-450 10^3/uL Mean Platelet Volume 8.3 6.9-10.8 fL Neutrophils (%) (Auto) 66.6 37.0-80.0 % Lymphocytes (%) (Auto) 23.6 10.0-50.0 % Monocytes (%) (Auto) 7.9 0.0-12.0 % Eosinophils (%) (Auto) 1.4 0.0-7.0 % Basophils (%) (Auto) 0.5 0.0-2.0 % Neutrophils # (Auto) 5.3 1.6-8.6 10 ^3/uL Lymphocytes # (Auto) 1.9 0.4-5.4 10 ^3/uL Monocytes # (Auto) 0.6 0-1.3 10 ^3/uL Eosinophils # (Auto) 0.1 0-0.8 10 ^3/uL Basophils # (Auto) 0 0-0.2 10 ^3/uL Nucleated Red Blood Cells 0.1 % Sodium Level 143 136-145 mmol/L Potassium Level 3.9 3.5-5.1 mmol/L Chloride Level 107 98-107 mmol/L Carbon Dioxide Level 25 20-31 mmol/L Anion Gap 11 5-15 Blood Urea Nitrogen 13 9-23 mg/dL Creatinine 0.78 0.550-1.02 mg/dL Glomerular Filtration Rate Calc 74 >90 mL/min BUN/Creatinine Ratio 16.7 10.0-20.0 Serum Glucose 91 74-106 mg/dL Calcium Level 9.4 8.7-10.4 mg/dL Total Bilirubin 0.8 0.2-1.0 mg/dL Aspartate Amino Transferase (AST) 20 13-40 U/L Alanine Aminotransferase (ALT) 20 7-40 U/L Alkaline Phosphatase 82 46-116 U/L Total Protein 6.4 5.7-8.2 g/dL Albumin 3.9 3.2-4.8 g/dL Urine Color Colorless Yellow Urine Clarity Turbid H Clear Urine pH 5.5 5.0-9.0 Urine Specific [place] 1.009 1.001-1.035 Urine Protein Negative Negative Urine Ketones Negative Negative Urine Blood Trace H Negative /uL Urine Nitrite Negative Negative Urine Bilirubin Negative Negative Urine Urobilinogen Normal Negative mg/dL Urine Leukocyte Esterase 3+ Negative /uL Urine RBC 1 0 - 4 /hpf Urine Microscopic WBC 289 H 0-5 /HPF Urine Squamous Epithelial Cells Few <5 /hpf Urine Bacteria Few H None Seen /hpf Urine Glucose Normal Normal mg/dL Troponin I High Sensitivity 23 </=34 ng/L Prothrombin Time 11.5 9.3-11.8 sec Prothrombin Time INR 1.09 0.9-1.15 Activated Partial Thromboplast Time 29.3 24.5-34.5 SEC Lactic Acid Level 1.2 0.4-2.0 mmol/L Assessment Sinus bradycardia, now normal sinus rhythm with first-degree conduction delay Coronary artery disease status post PTCA X 4 PORFIRIO to RCA, circumflex, and LAD (mid and proximal) Chronic HFimEF, NYHA class II (EF 60% on 07/06/24 from 35% on 08/27/23) History of apical thrombus on GUSTAVO in 12/29/2021 (on Eliquis) Paroxysmal atrial fibrillation (on Eliquis) Hypertension Dyslipidemia Morbid obesity Plan/Recommendation We will continue with the following plan/recommendations (): Case discussed with . We will proceed with obtaining a transthoracic echocardiogram to evaluate cardiac function. Previous echocardiogram from 07/06/2024 reveals an EF of 60%. At the time of assessment, the patient is in normal sinus rhythm. 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 Bradycardia may be medication induced as patient regularly takes Coreg. Can consider decreasing dose if patient goes into high degree heart block, has pauses on cardiac cath lab radiology technologist, or becomes symptomatic. Continue with single antiplatelet therapy and DOAC therapy. Continue with close cardiac surveillance and notify cardiology team immediately for any ECG changes. Thank you for allowing us to care for this patient. Please call with any questions or concerns. Critical care time spent: 44 minutes This medical document was created using an electronic medical record system with voice recognition software and computerized dictation system. Although this document has been carefully reviewed, there might still be some phonetic and typographical errors. Occasional wrong-word or ``sound-alike substitutions ma y have occurred due to the inherent limitations of voice recognition software. These areas are purely typographical due to imperfections of the software programs and do not reflect any compromise in the patient's medical care. Please read the chart carefully and recognize, using context, where these substitutions have occurred. Plan discussed with: Patient NYHA Physical activity limitations: Class2(Slight)fatigue,sob (palpitatns, angina w activityv) Date of Service: Mar 04, 2025 Billing Provider: BALA TAPIA Cardiology Common Codes: [id number] INP/OBS CARE (High) Cardiology Consultation Codes: [id number] CONSULT <45MIN BALA TAPIA Mar 04, 2025 17:24
--- NOTE | 2025-03-04 19:23 | DVHSR ---
APPROVED REPORT EXAM: Two-dimensional and M-mode echocardiogram with Doppler and color Doppler. Blood Pressure: 126/86 mmHg INDICATION CVA/TIA: RISK FACTORS Obesity: Height: 69, Weight: 308 DIMENSIONS LVDd 3.6 (3.8-5.7cm) LA (2D) 3.5 (1.9-4.0cm) Aortic Root 3.4 (2.0-3.7cm) LVDs 2.9 (2.5-4.0cm) LA (MM) (1.9-4.0cm) Aortic Cusp Exc 1.9 (1.5-2.0cm) EF (%) 35.0 (55-70%) Rt. Atrium 3.4 (1.9-4.0cm) Asc. Aorta 3.6 cm IVSd 1.3 (0.7-1.1cm) RV (D) 4.5 (1.8-2.4cm) PWd 1.3 (0.7-1.1cm) Mitral Valve Mitral Mitral Stenosis E wave 0.48m/s MV Mean GR. mmHg A wave 1.27m/s MV Peak GR. mmHg E/A ratio 0.4 2D MVA cm2 DECEL Time 173ms PRESS 1/2 Time ms Aortic Valve Aortic Valve Aortic Stenosis V1 0.74m/s AO Mean GR. 3mmHg V2 1.23m/s AO Peak GR. 6mmHg LVOT Diameter 2.2 (1.8-2.4cm) Doppler JOSÉ MIGUEL 2.29cm2 Pulmonic Valve V2 0.81m/s Tricuspid Valve TR Velocity 2.46m/s RVSP 32mmHg Other Information Technically limited study due to body habitus. Conclusion Technically good study. Sinus rhythm. Concentric LVH with left atrial enlargement. Aortic root enlargement. Moderate mitral annular calcification and thickening of the posterior mitral leaflet base. The aortic and pulmonic or structurally normal. Normal tricuspid valve. Left ventricular function is borderline at 45% with global hypokinesis. Sluggish anterior apical segment of the left ventricle the notably impaired diastolic relaxation noted. Anterolateral hypokinesis. Apical hypokinesis. Tricuspid insufficiency of moderate degree. No pericardial effusion masses or vegetations.
--- NOTE | 2025-03-04 23:06 | DVHPN2 ---
Progress Note - Dictate Date Seen: Mar 04, 2025 Medical Necessity Reason Pt with a Central, PICC or Fol: No Subjective Ms. Casillas is a 84 years old right-handed female with a history of hypertension, dyslipidemia, coronary artery disease, congestive heart failure, she [facility] on [facility] with a chief complaint of facial droop. I saw her on 09/11/2023 for right arm weakness and pain I have seen and examined the patient, I have talked to her nurse. She has been fine, doing complaints, MR does not confirmed acute stroke Telemetry captured bradycardia CBC, 03/03/2025: Unremarkable BMP, 03/03/2025: Unremarkable TG/CHO L/LDL/HDL, 08/16/2023: 90/124/44/55, 01/20/2025: 104/138/59/65 Vitamin B12, 01/20/25: 378 TSH, 01/20/2025: 2.83 FT4, 01/20/2025: 1.12 Echocardiogram, 03/04/2025: Technically good study. Sinus rhythm. Concentric LVH with left atrial enlargement. Aortic root enlargement. Moderate mitral annular calcification and thickening of the posterior mitral leaflet base. The aortic and pulmonic or structurally normal. Normal tricuspid valve. Left ventricular function is borderline at 45% with global hypokinesis. Sluggish anterior apical segment of the left ventricle the notably impaired diastolic relaxation noted. Anterolateral hypokinesis. Apical hypokinesis. Tricuspid insufficiency of moderate degree. No pericardial effusion masses or vegetations. Carotid Doppler, 03/03/2025: No hemodynamically significant stenosis by velocity criteria of the internal carotid artery CT head, 03/03/2025: No acute intracranial abnormality MRI C-spine, 07/13/2023: Multilevel moderate degenerative changes of the cervical spine as detailed above. Moderate right with severe left neural foraminal stenosis at C2-C3, moderate to severe left neural foraminal stenosis at C3-C4, moderate left neural foraminal stenosis at C4-C5 and C5-C6 with moderate right neural foraminal stenosis at C6-C7 from uncovertebral hypertrophy and facet osteoarthritis. There is minimal T2/FLAIR hyperintense cord signal throughout the cervical spine which may be associated with mild transverse myelitis MRI brain, 03/04/2025: No acute intracranial abnormality seen. No evidence for acute infarct. Mild chronic small vessel ischemic change. Bilateral cataract extraction. vital signs Vital Sign Date Time Temp Pulse Resp B/P (MAP) Pulse Ox O2 Delivery O2 Flow Rate FiO2 03/04/25 20:33 98.1 39 18 148/64 (92) 95 98.1 03/04/25 08:00 Room Air* 0 21 Total Intake and Output 03/03/25 03/03/25 03/04/25 15:00 23:00 07:00 Intake Total 200 ml Balance 200 ml medications Current Medications Medications Dose Ordered Sig/Yue Route Start Time Stop Time Status Last Admin Dose Admin Acetaminophen/ Hydrocodone Bitart 1 tab Q4HP PRN PO 03/03/25 17:15 Ondansetron HCl 4 mg Q4HP PRN IV 03/03/25 17:15 Docusate Sodium 100 mg BIDPRN PRN PO 03/03/25 17:15 Acetaminophen 650 mg Q6HP PRN PO 03/03/25 17:15 Nitroglycerin 0.4 mg Q5MINP PRN SL 03/03/25 17:15 Morphine Sulfate 2 mg Q30M PRN IV 03/03/25 17:15 Apixaban 5 mg BID PO 03/03/25 22:00 03/04/25 21:14 5 MG Spironolactone 25 mg DAILY PO 03/04/25 10:00 03/04/25 09:33 25 MG Atorvastatin Calcium 40 mg HS PO 03/03/25 22:00 03/04/25 21:14 40 MG Carvedilol 6.25 mg BIDWM PO 03/04/25 08:00 03/04/25 18:46 6.25 MG Losartan Potassium 50 mg DAILY PO 03/04/25 10:00 03/04/25 09:34 50 MG Clopidogrel Bisulfate 75 mg DAILY PO 03/05/25 10:00 objective General: the patient is well developed and nourished. No acute distress. MENTAL STATUS: Awake and alert. Oriented to person, place, time and general circumstances. Able to give personal history SPEECH, LANGUAGE, HIGHER CORTICAL FUNCTION: no aphasia or dysathria. CRANIAL NERVES: Pupils are equal, round and reactive. EOMs full and conjugate. Facial sensation intact in all three divisions bilaterally. Mandibular strength intact. Facial muscles symmetrical and strength intact. Tongue midline. No fasciculations or atrophy. SENSATION: Sensation to touch and pinprick is normal. MOTOR: Normal tone in the upper and lower extremity. Normal muscle bulk. No fasciculations. No abnormal movements or posturing. Muscle strength of the major groups in extremities is 5/5. REFLEXES: Deep tendon reflexes are symmetrical. No pathological reflexes. CEREBELLAR/COORDINATION: Finger to nose and heel she needs tests are normal bilaterally. GAIT/STATION: deferred. laboratory and microbiology Laboratory Tests 03/04/25 05:31 Test 03/04/25 05:31 Range/Units Serum Glucose 91 74-106 mg/dL Problem List Left facial weakness, not confirmed on physical examination, MRI unremarkable, ? TIA Rule out acute stroke Atrial fibrillation Bradycardia Assessment/Plan Monitoring Supportive treatment Telemetry Eliquis 5 mg b.i.d. Lipitor 40 mg daily Cardiology consultation Re: Bradycardia, AFib More recommendation per clinical course This medical document was created using an electronic medical record system with [employer] dictation system. Although this document has been carefully reviewed, there may still be some phonetic and typographical errors. These areas are purely typographical due to imperfections of the software programs, and do not reflect any compromise in the patient's medical care. Prognosis poor Plan discussed with: Patient, Other Total Time (mins): 35 PAT BENITEZ MD Mar 04, 2025 23:06
[2025-03-05 02:23] VITALS: BP 103/69; PULSE 74; RESP 19; TEMP 98.4; O2SAT 96
[2025-03-05 05:00] VITALS: BP 102/56; PULSE 80; RESP 18; TEMP 97.7; O2SAT 100
[2025-03-05 07:35] LABS: Anion Gap 12 (5-15); Carbon Dioxide 23 mmol/L (20-31); Chloride 105 mmol/L (98-107); Potassium 3.9 mmol/L (3.5-5.1); Sodium 140 mmol/L (136-145)
[2025-03-05 07:36] LABS: Calcium 9.5 mg/dL (8.7-10.4)
[2025-03-05 07:41] LABS: BUN/Creatinine Ratio 13.8 (10.0-20.0); Blood Urea Nitrogen 12 mg/dL (9-23); Triglycerides 86 mg/dL (< 150)
[2025-03-05 07:42] LABS: Glucose 108 mg/dL (74-106); Magnesium 1.9 mg/dL (1.6-2.6)
[2025-03-05 07:43] LABS: Cholesterol 104 mg/dL (< 200); HDL Cholesterol 45 mg/dL (40-59)
[2025-03-05 08:26] VITALS: PULSE 77
[2025-03-05 09:00] VITALS: BP 121/65; PULSE 65; RESP 18; TEMP 97.9; O2SAT 95
[2025-03-05] MEDS ORDERED: CLOPIDOGREL BISULFATE 75 MG TAB PO SCH (10:00)
[2025-03-05 13:00] VITALS: BP 133/74; PULSE 64; RESP 18; TEMP 99; O2SAT 95
--- NOTE | 2025-03-05 15:22 | DVHDS2 ---
Discharge Summary Date of Admission Mar 03, 2025 at 17:07 Date of Discharge: Mar 05, 2025 Labs/Diagnostic Data: Laboratory Results Test 03/05/25 06:05 03/04/25 05:31 03/03/25 22:17 03/03/25 16:44 Sodium Level 140 mmol/L (136-145) Potassium Level 3.9 mmol/L (3.5-5.1) Chloride Level 105 mmol/L (98-107) Carbon Dioxide Level 23 mmol/L (20-31) Anion Gap 12 (5-15) Blood Urea Nitrogen 12 mg/dL (9-23) Creatinine 0.87 mg/dL (0.550-1.02) Glomerular Filtration Rate Calc 65 mL/min (>90) BUN/Creatinine Ratio 13.8 (10.0-20.0) Serum Glucose 108 mg/dL (74-106) Hemoglobin A1c 6.5 % A1C (<5.7) Calcium Level 9.5 mg/dL (8.7-10.4) Magnesium Level 1.9 mg/dL (1.6-2.6) Triglycerides Level 86 mg/dL (< 150) Cholesterol Level 104 mg/dL (< 200) LDL Cholesterol 42 mg/dL (< 100) HDL Cholesterol 45 mg/dL (40-59) Thyroid Stimulating Hormone (TSH) 2.92 uIU/mL (0.55-4.78) White Blood Count 7.9 10^3/uL (4.4-10.8) Red Blood Count 4.62 10^6/uL (4.0-5.20) Hemoglobin 14.2 g/dL (12.2-16.2) Hematocrit 42.3 % (36.0-46.0) Mean Corpuscular Volume 91.6 fL (80.0-100.0) Mean Corpuscular Hemoglobin 30.7 pg (28.0-32.0) Mean Corpuscular Hemoglobin Concent 33.5 g/dL (32.0-36.0) Red Cell Distribution Width 13.2 % (11.8-14.3) Platelet Count 178 10^3/uL (140-450) Mean Platelet Volume 8.3 fL (6.9-10.8) Neutrophils (%) (Auto) 66.6 % (37.0-80.0) Lymphocytes (%) (Auto) 23.6 % (10.0-50.0) Monocytes (%) (Auto) 7.9 % (0.0-12.0) Eosinophils (%) (Auto) 1.4 % (0.0-7.0) Basophils (%) (Auto) 0.5 % (0.0-2.0) Neutrophils # (Auto) 5.3 10 ^3/uL (1.6-8.6) Lymphocytes # (Auto) 1.9 10 ^3/uL (0.4-5.4) Monocytes # (Auto) 0.6 10 ^3/uL (0-1.3) Eosinophils # (Auto) 0.1 10 ^3/uL (0-0.8) Basophils # (Auto) 0 10 ^3/uL (0-0.2) Nucleated Red Blood Cells 0.1 % Total Bilirubin 0.8 mg/dL (0.2-1.0) Aspartate Amino Transferase (AST) 20 U/L (13-40) Alanine Aminotransferase (ALT) 20 U/L (7-40) Alkaline Phosphatase 82 U/L (46-116) Total Protein 6.4 g/dL (5.7-8.2) Albumin 3.9 g/dL (3.2-4.8) Urine Color Colorless (Yellow) Urine Clarity Turbid (Clear) Urine pH 5.5 (5.0-9.0) Urine Specific [place] 1.009 (1.001-1.035) Urine Protein Negative (Negative) Urine Ketones Negative (Negative) Urine Blood Trace /uL (Negative) Urine Nitrite Negative (Negative) Urine Bilirubin Negative (Negative) Urine Urobilinogen Normal mg/dL (Negative) Urine Leukocyte Esterase 3+ /uL (Negative) Urine RBC 1 /hpf (0 - 4) Urine Microscopic WBC 289 /HPF (0-5) Urine Squamous Epithelial Cells Few /hpf (<5) Urine Bacteria Few /hpf (None Seen) Urine Glucose Normal mg/dL (Normal) Troponin I High Sensitivity 23 ng/L (</=34) Test 03/03/25 13:45 Prothrombin Time 11.5 sec (9.3-11.8) Prothrombin Time INR 1.09 (0.9-1.15) Activated Partial Thromboplast Time 29.3 SEC (24.5-34.5) Lactic Acid Level 1.2 mmol/L (0.4-2.0) Other Laboratory Tests 03/05/25 06:05 03/04/25 05:31 Brief Hx & Hospital Course: 84-year-old female with a known history of congestive heart failure, hypertension, dyslipidemia, coronary artery disease status post four drug- eluting stents, paroxysmal AFib, 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 Patient's hospital course was eventful for bradycardia to 30s to 40s. Currently patient is normal sinus rhythm still on beta-leandro carvedilol 6.25 b.i.d.. Patient seen by Cardiology and cleared to be discharged. Patient is being discharged under stable condition. Condition at Discharge: Stable Final Diagnosis/Problems List 1. Sinus bradycardia, currently in normal sinus rhythm 2. CAD status post PCI with four drug-eluting stents to RCA, circumflex and LAD 3. Chronic congestive heart failure with diastolic dysfunction currently compensated 4. Paroxysmal AFib currently on Eliquis 5. 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 Morbid obesity classI Discharge Disposition: Home SNF Discharge Will this Physician continue t: No Discharge Instruct/Medications Diet: Cardiac 2g Na,low cholest Activity: No Restrictions, As Tolerated Follow Up/Referral: Please follow up with the PCP in one week Follow up with Dr. Fletcher in 1-2eeks Medications: Resume home medications. Continued Medications: Apixaban Base (Eliquis) 5 Mg Tab 1 TAB PO BID for CAD Atorvastatin Calcium (Lipitor) 40 Mg Tab 1 TAB PO QPM for HYPERLIPIDEMIA Carvedilol (Carvedilol) 6.25 Mg Tab 1 TAB PO BIDWM for HYPERTENSION Clopidogrel Bisulfate (Clopidogrel) 75 Mg Tab 1 TAB PO DAILY Losartan Potassium (Losartan Potassium) 50 Mg Tab 1 TAB PO DAILY Spironolactone (Spironolactone) 25 Mg Tab 1 TAB PO DAILY for CHF Scheduled Apixaban Base (Eliquis), 1 TAB PO BID, (Reported) Atorvastatin Calcium (Lipitor), 1 TAB PO QPM, (Reported) Carvedilol (Carvedilol), 1 TAB PO BIDWM, (Reported) Clopidogrel Bisulfate (Clopidogrel), 1 TAB PO DAILY, (Reported) Losartan Potassium (Losartan Potassium), 1 TAB PO DAILY, (Reported) Spironolactone (Spironolactone), 1 TAB PO DAILY, (Reported) Discontinued Medications Acetaminophen (Acetaminophen), 650 MG PO Q6HP PRN Aspirin (Aspirin Low Dose), 1 TAB PO DAILY, (Reported) Diclofenac Epolamine (Diclofenac Epolamine), 1 % TD DAILY Ezetimibe (Zetia), 1 TAB PO QPM, (Reported) Lidocaine (Lidoderm 5% Topical Patch), 1 PATCH TOP DAILY Lisinopril (Lisinopril), 1 TAB PO DAILY, (Reported) Discharge Statement: "Patient was advised to return to the ER or call 911 if any headaches, dizziness, shortness of breath, chest pain, abdominal pain, bleeding, fevers, or worsening of medical condition. Patient was counseled about treatment plan, medications, possible side effects, patientverbalized understanding. All questions were answered to the best of my ability. This discharge took greater then 30 minutes in planning, reviewing documentation, counseling the patient, and discussing with other team members." ASSESSMENT ASSESSMENT Assessment Sinus bradycardia, now normal sinus rhythm with first-degree conduction delay Coronary artery disease status post PTCA X 4 PORFIRIO to RCA, circumflex, and LAD (mid and proximal) Chronic HFimEF, NYHA class II (EF 60% on 07/06/24 from 35% on 08/27/23) History of apical thrombus on GUSTAVO in 12/29/2021 (on Eliquis) Paroxysmal atrial fibrillation (on Eliquis) Hypertension Dyslipidemia Morbid obesity Date of Service: Mar 05, 2025 Billing Provider: RITA MURPHY MD Common Visit Codes: 31953-YIZ/OBS DISCH DAY >30min RITA MRUPHY MD Mar 05, 2025 15:22
[2025-03-05 15:27] VITALS: BP 121/65; PULSE 65; TEMP 37.2
== END 2025-03-05 16:30 | disposition home or self-care (01) | DRG 69 ==
LOC: ER 12:01 → EDBD 12:01 → OVERFLOW 17:07 → TELE-WESTW 17:12
PROVIDERS: ADMIT Internal Medicine; ATTEND Internal Medicine
DX: G45.9 Transient cerebral ischemic attack, unspecified (principal); I50.32 Chronic diastolic (congestive) heart failure; I11.0 Hypertensive heart disease with heart failure; E66.01 Morbid (severe) obesity due to excess calories; Z79.01 Long term (current) use of anticoagulants; Z68.42 Body mass index [BMI] 45.0-49.9, adult; E78.5 Hyperlipidemia, unspecified; I48.0 Paroxysmal atrial fibrillation; I45.9 Conduction disorder, unspecified; I25.10 Atherosclerotic heart disease of native coronary artery without angina pectoris; F17.200 Nicotine dependence, unspecified, uncomplicated; Z96.652 Presence of left artificial knee joint; Z95.5 Presence of coronary angioplasty implant and graft; Z83.3 Family history of diabetes mellitus; Z80.3 Family history of malignant neoplasm of breast; Z82.49 Family history of ischemic heart disease and other diseases of the circulatory system; Z79.899 Other long term (current) drug therapy; Z98.42 Cataract extraction status, left eye; Z98.41 Cataract extraction status, right eye; Z79.82 Long term (current) use of aspirin
CPT/HCPCS: 36415; 70450; 70551; 71045; 80048; 80053; 80061; 81001; 83036; 83605; 83735; 84443; 84484; 85025; 85610; 85730; 93005; 93306; 93886; G0378